=== PATIENT | male | born 1985 | race American Indian/Alaskan Native ===

== ENCOUNTER 2017-12-18 11:50 | Inpatient (IN) | payer MEDICAID ==
[2017-12-18 13:13] LABS: ALBUMIN 4.2 g/dL (3.5-5.0); CALCIUM 9.1 mg/dl (8.6-10.4); GFR AFRICAN-AMERICAN > 60; GFR NON-AFRICAN AMERICAN > 60
[2017-12-18 13:19] LABS: BASO % 0.5 % (0.0-2.0); EOS # 0.2 K/uL (0.0-0.7); EOS % 2.1 % (0.0-4.0); HEMOGLOBIN 13.2 g/dL (12.0-18.0); LYMPH # 2.3 K/uL (1.0-4.3); MEAN CELL VOLUME 83.3 fL (80.0-94.0); MEAN CORPUSCULAR HEMOGLOBIN 28.8 pg (27.0-31.0); MEAN CORPUSCULAR HGB CONC 34.5 g/dL (33.0-37.0); MEAN PLATELET VOLUME 9.4 fL (7.2-11.7); MONO # 0.5 K/uL (0.0-0.8); MONO % 6.8 % (0.0-10.0); NEUT # 4.6 K/uL (1.8-7.0); NEUT % 60.6 % (50.0-75.0); NRBC % 0.1 % (0.0-2.0); RBC 4.58 Mil/uL (4.40-5.90); RED CELL DISTRIBUTION WIDTH 12.7 % (11.5-14.5); WHITE BLOOD COUNT 7.6 K/uL (4.8-10.8)
[2017-12-18 13:27] LABS: ALT/SGPT 31 U/L (21-72); AST/SGOT 34 U/L (17-59); BLOOD UREA NITROGEN 12 mg/dL (9-20)
[2017-12-18] MEDS ORDERED: Cefepime 1 GM in Sodium Chloride 0.9% 50 ML IVPB STA (13:40)
[2017-12-18] MEDS ORDERED: Vancomycin 1 GM 1 GM/250 ML BAG IV STA (13:40)
--- NOTE | 2017-12-18 14:36 | C.PDOC ---
History Of Present Illness 32 yr male with PMHx of cerebral palsy, presents to the ER for evaluation of wound to the left foot for the past 3-4 days. Patient states the wound is painful and draining. Patient is non ambulatory due to CP. Patient reports previous history of cellulitis in the same foot, and he admits to chronic leg edema. Patient denies fever, chest pain, SOB, nausea, vomiting, diarrhea, abdominal pain. Time Seen by Provider: 12/18/17 12:27 Chief Complaint (Nursing): Lower Extremity Problem/Injury History/Exam Limitations: no limitations Onset/Duration Of Symptoms: Days (3-4 days) Current Symptoms Are (Timing): Still Present Severity: Moderate Past Medical History Reviewed: Historical Data, Nursing Documentation, Vital Signs Vital Signs: Last Vital Signs Temp 97.3 F L 12/25/17 00:00 Pulse 70 12/25/17 00:00 Resp 20 12/25/17 00:00 BP 131/89 12/25/17 00:00 Pulse Ox 98 12/25/17 00:00 - Medical History PMH: HTN Other PMH: cerebral palsy Family History: States: No Known Family Hx - Social History Hx Alcohol Use: No Hx Substance Use: No - Immunization History Hx Tetanus Toxoid Vaccination: No Hx Influenza Vaccination: No Hx Pneumococcal Vaccination: No Review Of Systems Except As Marked, All Systems Reviewed And Found Negative. Constitutional: Negative for: Fever Cardiovascular: Negative for: Chest Pain Respiratory: Negative for: Shortness of Breath Gastrointestinal: Negative for: Nausea, Vomiting, Abdominal Pain Skin: Positive for: Other ((+) wound on the left foot, draining and painful) Physical Exam - Physical Exam Appears: Well, Non-toxic, In Acute Distress (mild pain) Skin: Warm, Dry, No Rash, Other ((+) Left Foot - approx 2cm wound with clear discharge, tender to palpation with mild surrounding erythema) Oral Mucosa: Moist Cardiovascular: Rhythm Regular Respiratory: Normal Breath Sounds, No Rales, No Rhonchi, No Wheezing Extremity: Other (Mild contraction/deformity of B/L hands/feet, chronic thickened skin of lower extremities. +2 pitting edema B/L ) Pulses: Left Dorsalis Pedis: Normal, Right Dorsalis Pedis: Normal Neurological/Psych: Oriented x3 ED Course And Treatment - Laboratory Results Result Diagrams: 12/20/17 07:15 12/20/17 07:15 O2 Sat by Pulse Oximetry: 100 (RA) Pulse Ox Interpretation: Normal Progress Note: PLAN: Blood work ordered and reviewed. Patient given IV Vancomycin, IV Cefepime, IV Morphine, IV NS bolus. 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 Disposition - Disposition Disposition: HOSPITALIZED Disposition Time: 14:42 Condition: STABLE - Clinical Impression Clinical Impression: Cellulitis of left foot, Cerebral palsy - Scribe Statement The provider has reviewed the documentation as recorded by the Franciibe Marsha Bloom Provider Attestation: All medical record entries made by the Franciibe were at my direction and personally dictated by me. I have reviewed the chart and agree that the record accurately reflects my personal performance of the history, physical exam, medical decision making, and the department course for this patient. I have also personally directed, reviewed, and agree with the discharge instructions and disposition.
[2017-12-18] MEDS ORDERED: Morphine 4 MG/ML VIAL ONE (14:46)
[2017-12-18] MEDS ORDERED: Vancomycin 1 gm/NS 200 ml 1 GM/200 ML BAG IVPB ONE (15:00)
--- NOTE | 2017-12-18 22:12 | CP.PCM.CON ---
History of Present Illness - History of Present Illness History of Present Illness: INFECTIOUS DISEASE CONSULT HPI; 32 yr male with PMhx of cerebral palsy, presents to the ER for evaluation of wound to the left foot for the past 3-4 days. Patient states the wound is painful and draining. Patient is non ambulatory. Patient reports previous history of cellulites in the foot. Patient has chronic leg edema. Denies fever, chest pain, SOB, nausea, vomiting or abdominal pain. PATIENT DENIES ANY FEVER OR CHILLS. DENIES ANY COUGH. PATIENT STATES HE FEELS WEAK. INFECTIOUS DISEASE CONSULTATION REQUESTED BY PMD FOR CHRONIC STASIS ULCERS AND LEFT LEG CELLULITIS PMH: HTN,CEREBRAL PALSY. Family History: States: No Known Family Hx - Social History Hx Alcohol Use: No Hx Substance Use: No - Immunization History Hx Tetanus Toxoid Vaccination: No Hx Influenza Vaccination: No Hx Pneumococcal Vaccination: No Review of Systems - Constitutional Constitutional: absent: Chills, Fever - EENT Eyes: absent: Floaters Nose/Mouth/Throat: absent: Dry Mouth, Dysphagia, Sore Throat - Cardiovascular Cardiovascular: Leg Edema. absent: Chest Pain - Respiratory Respiratory: absent: Cough, Hemoptysis, Dyspnea on Exertion - Genitourinary Genitourinary: absent: Dysuria, Hematuria, Freq UTI - Integumentary Integumentary: Rash (DRY SKIN PEELING OFF BILATERAL LOWER EXTREMITIES WITH CHRONIC STASIS DERMATITIS CHANGES AND LEFT FOOT ULCER) - Neurological Neurological: absent: Dizziness, Headaches - Hematologic/Lymphatic Hematologic: As Per HPI. absent: Lymphadenopathy Past Patient History - Past Medical History & Family History Past Medical History?: Yes - Past Social History Smoking Status: Never Smoked - CARDIAC Hx Hypertension: Yes - MUSCULOSKELETAL/RHEUMATOLOGICAL Other/Comment: CEREBRAL PALSY - PSYCHIATRIC Hx Substance Use: No - SURGICAL HISTORY Hx Surgeries: No - ANESTHESIA Hx Anesthesia: No Meds Allergies/Adverse Reactions: Allergies Allergy/AdvReac Type Severity Reaction Status Date / Time acetaminophen [From Percocet] Allergy Verified 12/18/17 12:05 oxycodone [From Percocet] Allergy Verified 12/18/17 12:05 - Medications Medications: Current Medications Acetaminophen (Tylenol 325mg Tab) 650 mg PO Q4H PRN PRN Reason: pain fever Famotidine (Pepcid) 40 mg PO DAILY [facility] Furosemide (Lasix) 40 mg IVP Q12 [facility] Hydromorphone HCl (Dilaudid) 0.5 mg IVP Q4H PRN PRN Reason: Pain, Mild (1-3) Vancomycin/Sodium Chloride (Vancomycin 1 Gm/Ns 200 Ml) 1 gm in 200 mls @ 133 mls/hr IVPB Q24H СЕРГЕ[facility] Stop: 12/24/17 16:01 Ondansetron HCl (Zofran Inj) 4 mg IVP Q6 PRN PRN Reason: Nausea/Vomiting Physical Exam - Constitutional Appears: No Acute Distress - Head Exam Head Exam: NORMAL INSPECTION - Eye Exam Eye Exam: EOMI, PERRL - ENT Exam ENT Exam: Normal Oropharynx - Neck Exam Neck exam: Positive for: Normal Inspection - Respiratory Exam Respiratory Exam: Clear to Auscultation Bilateral - Cardiovascular Exam Cardiovascular Exam: REGULAR RHYTHM, +S1, +S2 - GI/Abdominal Exam GI & Abdominal Exam: Normal Bowel Sounds, Soft. absent: Organomegaly - Extremities Exam Extremities exam: Positive for: pedal edema, pedal pulses present (BILATERAL LOWER EXTREMITIES STASIS DERMATITIS CHANGES WITH CHRONIC EDEMA AND LEFT LOWER EXTREMITY CELLULITIS.(+) Left Foot - 2cm wound with clear discharge, tender to palpation with mild erythema)). Negative for: calf tenderness - Neurological Exam Neurological exam: Alert, CN II-XII Intact, Oriented x3, Reflexes Normal - Psychiatric Exam Psychiatric exam: Normal Mood - Skin Skin Exam: Normal Color, Warm Results - Vital Signs Recent Vital Signs: Last Vital Signs Temp 97.5 F L 12/18/17 11:57 Pulse 99 H 12/18/17 18:58 Resp 18 12/18/17 18:58 BP 138/94 H 12/18/17 18:59 Pulse Ox 100 12/18/17 18:58 - Labs Result Diagrams: 12/18/17 12:57 12/18/17 12:57 Labs: Laboratory Results - last 24 hr 12/18/17 12/18/17 12/18/17 12:57 12:57 13:13 WBC 7.6 RBC 4.58 Hgb 13.2 Hct 38.1 MCV 83.3 MCH 28.8 MCHC 34.5 RDW 12.7 Plt Count 325 MPV 9.4 Neut % (Auto) 60.6 Lymph % (Auto) 30.0 [place] % (Auto) 6.8 Eos % (Auto) 2.1 Baso % (Auto) 0.5 Neut # 4.6 Lymph # 2.3 [place] # 0.5 Eos # 0.2 Baso # 0.0 ESR 43 H Sodium 132 Potassium 4.3 Chloride 98 Carbon Dioxide 28 Anion Gap 11 BUN 12 Creatinine 0.8 Est GFR ( Amer) > 60 Est GFR (Non-Af Amer) > 60 POC Glucose (mg/dL) 58 L Random Glucose 85 Calcium 9.1 Total Bilirubin 1.0 AST 34 ALT 31 Alkaline Phosphatase 48 Total Protein 8.5 H Albumin 4.2 Globulin 4.3 H Albumin/Globulin Ratio 1.0 12/18/17 12/18/17 12/18/17 13:15 13:47 13:50 WBC RBC Hgb Hct MCV MCH MCHC RDW Plt Count MPV Neut % (Auto) Lymph % (Auto) [place] % (Auto) Eos % (Auto) Baso % (Auto) Neut # Lymph # [place] # Eos # Baso # ESR Sodium Potassium Chloride Carbon Dioxide Anion Gap BUN Creatinine Est GFR ( Amer) Est GFR (Non-Af Amer) POC Glucose (mg/dL) 54 L 70 84 Random Glucose Calcium Total Bilirubin AST ALT Alkaline Phosphatase Total Protein Albumin Globulin Albumin/Globulin Ratio Assessment & Plan (1) Cerebral palsy Status: Acute (2) Chronic stasis dermatitis Status: Acute (3) Foot abrasion, infected Assessment and Plan: LT. FOOT ULCER.(+) Left Foot - 2cm wound with clear discharge, tender to palpation with mild erythema. Status: Acute (4) Cellulitis of left lower leg Status: Acute - Assessment and Plan (Free Text) Plan: Plan; blood cultures wound cultures left foot ulcer. continue cefepime 1 g every 8 hourly. 12/18/17. Add IV vancomycin 1 g every 24 hourly 12/18/17 while awaiting cultures. Podiatry evaluation and consult and wound care. Will follow along with you and make recommendations as needed.
--- NOTE | 2017-12-18 22:12 | CP.PCM.CON ---
Past Patient History - Past Medical History & Family History Past Medical History?: Yes - Past Social History Smoking Status: Never Smoked - CARDIAC Hx Hypertension: Yes - MUSCULOSKELETAL/RHEUMATOLOGICAL Other/Comment: CEREBRAL PALSY - PSYCHIATRIC Hx Substance Use: No - SURGICAL HISTORY Hx Surgeries: No - ANESTHESIA Hx Anesthesia: No Meds Allergies/Adverse Reactions: Allergies Allergy/AdvReac Type Severity Reaction Status Date / Time acetaminophen [From Percocet] Allergy Verified 12/18/17 12:05 oxycodone [From Percocet] Allergy Verified 12/18/17 12:05 - Medications Medications: Current Medications Acetaminophen (Tylenol 325mg Tab) 650 mg PO Q4H PRN PRN Reason: pain fever Famotidine (Pepcid) 40 mg PO DAILY [facility]ГЕ[facility] Furosemide (Lasix) 40 mg IVP Q12 [facility] Hydromorphone HCl (Dilaudid) 0.5 mg IVP Q4H PRN PRN Reason: Pain, Mild (1-3) Vancomycin/Sodium Chloride (Vancomycin 1 Gm/Ns 200 Ml) 1 gm in 200 mls @ 133 mls/hr IVPB Q24H СЕРГЕЙ Stop: 12/24/17 16:01 Ondansetron HCl (Zofran Inj) 4 mg IVP Q6 PRN PRN Reason: Nausea/Vomiting Results - Vital Signs Recent Vital Signs: Last Vital Signs Temp 97.5 F L 12/18/17 11:57 Pulse 99 H 12/18/17 18:58 Resp 18 12/18/17 18:58 BP 138/94 H 12/18/17 18:59 Pulse Ox 100 12/18/17 18:58 - Labs Result Diagrams: 12/18/17 12:57 12/18/17 12:57 Labs: Laboratory Results - last 24 hr 12/18/17 12/18/17 12/18/17 12:57 12:57 13:13 WBC 7.6 RBC 4.58 Hgb 13.2 Hct 38.1 MCV 83.3 MCH 28.8 MCHC 34.5 RDW 12.7 Plt Count 325 MPV 9.4 Neut % (Auto) 60.6 Lymph % (Auto) 30.0 [place] % (Auto) 6.8 Eos % (Auto) 2.1 Baso % (Auto) 0.5 Neut # 4.6 Lymph # 2.3 [place] # 0.5 Eos # 0.2 Baso # 0.0 ESR 43 H Sodium 132 Potassium 4.3 Chloride 98 Carbon Dioxide 28 Anion Gap 11 BUN 12 Creatinine 0.8 Est GFR ( Amer) > 60 Est GFR (Non-Af Amer) > 60 POC Glucose (mg/dL) 58 L Random Glucose 85 Calcium 9.1 Total Bilirubin 1.0 AST 34 ALT 31 Alkaline Phosphatase 48 Total Protein 8.5 H Albumin 4.2 Globulin 4.3 H Albumin/Globulin Ratio 1.0 12/18/17 12/18/17 12/18/17 13:15 13:47 13:50 WBC RBC Hgb Hct MCV MCH MCHC RDW Plt Count MPV Neut % (Auto) Lymph % (Auto) [place] % (Auto) Eos % (Auto) Baso % (Auto) Neut # Lymph # [place] # Eos # Baso # ESR Sodium Potassium Chloride Carbon Dioxide Anion Gap BUN Creatinine Est GFR ( Amer) Est GFR (Non-Af Amer) POC Glucose (mg/dL) 54 L 70 84 Random Glucose Calcium Total Bilirubin AST ALT Alkaline Phosphatase Total Protein Albumin Globulin Albumin/Globulin Ratio
[2017-12-19 03:33] LABS: URINE BILIRUBIN NEGATIVE (NEGATIVE); URINE BLOOD NEGATIVE (NEGATIVE); URINE CLARITY Clear (Clear); URINE COLOR Straw (YELLOW); URINE GLUCOSE (UA) NORMAL (Normal); URINE LEUKOCYTE ESTERASE NEG Leu/uL (Negative); URINE NITRATE NEGATIVE (NEGATIVE); URINE PROTEIN NEGATIVE (NEGATIVE); URINE UROBILINOGEN NORMAL mg/dL (0.2-1.0)
--- NOTE | 2017-12-19 04:52 | HP ---
CHIEF COMPLAINT: Left foot and leg ulcer. HISTORY OF PRESENT ILLNESS: Mr. Robin Kaufman is a 32-year-old male with past medical history of cerebral palsy, mentally challenged, who came to the Emergency Room for evaluation of the wound to the left foot for the past 3 to 4 days. The patient states the wound is painful and draining. The patient is nonambulatory. The patient reports previous history of cellulitis in the foot and has chronic leg edema. Denies fever or chills. No nausea, vomiting or diarrhea. No shortness of breath. No hematuria or hematochezia. No injury of the lower extremity. PAST MEDICAL HISTORY: Hypertension, cerebral palsy, cellulitis of the legs. FAMILY HISTORY: Father and mother unknown. SOCIAL HISTORY: No smoking, no drugs, no ethanol. ALLERGIES: THE PATIENT IS ALLERGIC WITH ACETAMINOPHEN AND OXYCODONE. HOME MEDICATIONS: Lasix. REVIEW OF SYSTEMS: The patient seen and examined on the bedside in the ER hallway, bed #5. Looks comfortable after getting pain medications. He is not a very good historian. No fever, no chills. Has cellulitis of the legs. No chest pain, no shortness of breath. No nausea, vomiting or diarrhea. No abdominal pain. He has wound of the left foot, draining and painful. PHYSICAL EXAMINATION: VITAL SIGNS: Temperature 97.5, pulse 96, respiratory rate 18, blood pressure 140/96, pulse oximetry 100. HEENT: Head: Normocephalic, atraumatic. Eyes: PERRLA. Extraocular movements are intact. Conjunctivae clear. Nose patent. Mucous membranes are moist. NECK: Supple. No carotid bruits, no JVD or thyromegaly. CHEST: Bilaterally symmetrical. HEART: S1 and S2 positive. LUNGS: Clear to auscultation, ABDOMEN: Soft. Bowel sounds are present. No organomegaly. EXTREMITIES: Chronic thicker skin to the lower extremities, +2 pitting edema to the left lower extremities, mildly contracted lower extremities. LABORATORY DATA: White blood cells 7.6, hemoglobin 13.2, hematocrit 38.1, platelets 325. Sodium 132, potassium 4.3, BUN 12, creatinine 0.8, glucose 85. ASSESSMENT AND PLAN: Mr. Robin Kaufman is a 32-year-old male with history of hypertension, cerebral palsy, mentally challenged, contracted legs, came with ulcer on the leg and foot on his left side. We admitted the patient. Started antibiotics. ID consult called. We will call Podiatry also. Given pain medications. Lasix. History of congestive heart failure. Pepcid, gastrointestinal prophylaxis, started vancomycin. Repeat labs. We will follow. Lien Manriquez MD
[2017-12-19 06:33] LABS: HEMOGLOBIN 13.3 g/dL (12.0-18.0); MEAN CELL VOLUME 82.8 fL (80.0-94.0); MEAN CORPUSCULAR HEMOGLOBIN 28.7 pg (27.0-31.0); MEAN CORPUSCULAR HGB CONC 34.7 g/dL (33.0-37.0); MEAN PLATELET VOLUME 9.1 fL (7.2-11.7); RBC 4.65 Mil/uL (4.40-5.90); RED CELL DISTRIBUTION WIDTH 12.6 % (11.5-14.5); WHITE BLOOD COUNT 11.7 K/uL (4.8-10.8)
[2017-12-19 06:51] LABS: BLOOD UREA NITROGEN 10 mg/dL (9-20); CALCIUM 9.2 mg/dl (8.6-10.4); GFR AFRICAN-AMERICAN > 60; GFR NON-AFRICAN AMERICAN > 60; HDL CHOLESTEROL 37 mg/dL (30-70)
[2017-12-19 07:01] LABS: LDL CHOLESTEROL 84 mg/dL (0-129)
[2017-12-19] MEDS: Enoxaparin 40 mg Syringe SC SCH (10:32)
--- NOTE | 2017-12-19 13:16 | CP.PCM.CON ---
History of Present Illness - History of Present Illness History of Present Illness: 32 yr male with PMhx of cerebral palsy seen at bedside for b/l venous stasis dermatits with lichenification of the skin and very superficial ulcerations. Patient states that he has had these wounds for the last few days. He states that he has never sought treatment for the skin changes to his feet and legs. He is AAO x 3 and NAD. Denies any further complaints or pedal problems at this time. Denies recent N/V/F/C/CP/SOB/D/posterior calf pain when squeezed. Review of Systems - Review of Systems Review of Systems: ROS as per HPI Past Patient History - Past Medical History & Family History Past Medical History?: Yes - Past Social History Smoking Status: Never Smoked - CARDIAC Hx Hypertension: Yes - MUSCULOSKELETAL/RHEUMATOLOGICAL Other/Comment: CEREBRAL PALSY - PSYCHIATRIC Hx Substance Use: No - SURGICAL HISTORY Hx Surgeries: No - ANESTHESIA Hx Anesthesia: No Meds Allergies/Adverse Reactions: Allergies Allergy/AdvReac Type Severity Reaction Status Date / Time acetaminophen [From Percocet] Allergy Verified 12/18/17 12:05 oxycodone [From Percocet] Allergy Verified 12/18/17 12:05 - Medications Medications: Current Medications Acetaminophen (Tylenol 325mg Tab) 650 mg PO Q4H PRN PRN Reason: pain fever Enoxaparin Sodium (Lovenox) 40 mg SC DAILY [facility] Last Admin: 12/19/17 10:32 Dose: 40 mg Famotidine (Pepcid) 40 mg PO DAILY СЕРГЕЙ Furosemide (Lasix) 40 mg IVP Q12 [facility] Last Admin: 12/19/17 10:35 Dose: 40 mg Hydromorphone HCl (Dilaudid) 0.5 mg IVP Q4H PRN PRN Reason: Pain, Mild (1-3) Last Admin: 12/18/17 22:53 Dose: 0.5 mg Vancomycin/Sodium Chloride (Vancomycin 1 Gm/Ns 200 Ml) 1 gm in 200 mls @ 133 mls/hr IVPB Q24H [facility] Stop: 12/24/17 16:01 Cefepime HCl 1 gm/ Dextrose 50 mls @ 100 mls/hr IVPB Q8H [facility] Last Admin: 12/19/17 05:31 Dose: 100 mls/hr Ondansetron HCl (Zofran Inj) 4 mg IVP Q6 PRN PRN Reason: Nausea/Vomiting Last Admin: 12/19/17 03:00 Dose: 4 mg Pneumococcal Polyvalent Vaccine (Pneumovax 23 Vaccine) 0.5 ml IM .ONCE ONE Stop: 12/20/17 10:01 Physical Exam - Constitutional Appears: Well, Non-toxic, No Acute Distress - Extremities Exam Additional comments: B/l LE focused exam Vasc: DP/PT pulses fully palpable 2/4 b/l. Skin temperature warm to warm from proximal to distal. CFT < 3 seconds to all digits. Minimal edema noted b/l Neuro: Epicritic and protective sensation grossly intact b/l Derm: Diffuse xerotic skin most likely secondary to venous stasis dermatitis noted to b/l feet and lower legs with lichenification of skin also present. Multiple, small, superficial ulcerations noted diffusely on b/l feet. No clinical signs of infection noted at this time. Otherwise, no open lesions, wounds, maceration, xerosis, abnormal pigmentation or abnormal growths noted b/l MSK: No POP to b/l LE. Rigid conrtractures of b/l LE noted. Severe hallux valgus deformity noted b/l - Neurological Exam Neurological exam: Alert, Oriented x3 - Psychiatric Exam Psychiatric exam: Normal Affect, Normal Mood Results - Vital Signs Recent Vital Signs: Last Vital Signs Temp 97.3 F L 12/19/17 00:00 Pulse 102 H 12/19/17 00:00 Resp 20 12/19/17 00:00 BP 141/88 12/19/17 10:35 Pulse Ox 97 12/19/17 00:00 - Labs Result Diagrams: 12/19/17 06:22 12/19/17 06:22 Labs: Laboratory Results - last 24 hr 12/18/17 12/18/17 12/18/17 12:57 12:57 13:13 WBC 7.6 RBC 4.58 Hgb 13.2 Hct 38.1 MCV 83.3 MCH 28.8 MCHC 34.5 RDW 12.7 Plt Count 325 MPV 9.4 Neut % (Auto) 60.6 Lymph % (Auto) 30.0 [place] % (Auto) 6.8 Eos % (Auto) 2.1 Baso % (Auto) 0.5 Neut # 4.6 Lymph # 2.3 [place] # 0.5 Eos # 0.2 Baso # 0.0 ESR 43 H Sodium 132 Potassium 4.3 Chloride 98 Carbon Dioxide 28 Anion Gap 11 BUN 12 Creatinine Est GFR ( Amer) Est GFR (Non-Af Amer) POC Glucose (mg/dL) 58 L Random Glucose Calcium AST 34 ALT 31 Alkaline Phosphatase 48 Globulin 4.3 H Albumin/Globulin Ratio 1.0 Triglycerides Cholesterol LDL Cholesterol Direct HDL Cholesterol TSH 3rd Generation Urine Color Urine Clarity Urine pH Ur Specific [place] Urine Protein Urine Glucose (UA) Urine Ketones Urine Blood Urine Nitrate Urine Bilirubin Urine Urobilinogen Ur Leukocyte Esterase Urine WBC (Auto) Urine RBC (Auto) Hyaline Casts 12/18/17 12/18/17 12/18/17 13:15 13:47 13:50 WBC RBC Hgb Hct MCV MCH MCHC RDW Plt Count MPV Neut % (Auto) Lymph % (Auto) [place] % (Auto) Eos % (Auto) Baso % (Auto) Neut # Lymph # [place] # Eos # Baso # ESR Sodium Potassium Chloride Carbon Dioxide Anion Gap BUN Creatinine Est GFR ( Amer) Est GFR (Non-Af Amer) POC Glucose (mg/dL) 54 L 70 84 Random Glucose Calcium AST ALT Alkaline Phosphatase Globulin Albumin/Globulin Ratio Triglycerides Cholesterol LDL Cholesterol Direct HDL Cholesterol TSH 3rd Generation Urine Color Urine Clarity Urine pH Ur Specific [place] Urine Protein Urine Glucose (UA) Urine Ketones Urine Blood Urine Nitrate Urine Bilirubin Urine Urobilinogen Ur Leukocyte Esterase Urine WBC (Auto) Urine RBC (Auto) Hyaline Casts 12/19/17 12/19/17 12/19/17 03:16 06:22 06:22 WBC 11.7 H D RBC 4.65 Hgb 13.3 Hct 38.5 MCV 82.8 MCH 28.7 MCHC 34.7 RDW 12.6 Plt Count 371 MPV 9.1 Neut % (Auto) Lymph % (Auto) [place] % (Auto) Eos % (Auto) Baso % (Auto) Neut # Lymph # [place] # Eos # Baso # ESR Sodium 134 Potassium 3.7 Chloride 92 L Carbon Dioxide 32 H Anion Gap 14 BUN 10 Creatinine 0.8 Est GFR ( Amer) > 60 Est GFR (Non-Af Amer) > 60 POC Glucose (mg/dL) Random Glucose 130 H Calcium 9.2 AST ALT Alkaline Phosphatase Globulin Albumin/Globulin Ratio Triglycerides 54 Cholesterol 158 LDL Cholesterol Direct 84 HDL Cholesterol 37 TSH 3rd Generation 0.43 L Urine Color Straw Urine Clarity Clear Urine pH 5.0 Ur Specific [place] 1.008 Urine Protein Negative Urine Glucose (UA) Normal Urine Ketones Negative Urine Blood Negative Urine Nitrate Negative Urine Bilirubin Negative Urine Urobilinogen Normal Ur Leukocyte Esterase Neg Urine WBC (Auto) < 1 Urine RBC (Auto) < 1 Hyaline Casts 11-20 H Assessment & Plan - Assessment and Plan (Free Text) Assessment: 32 year old male with PMhx of cerebral palsy seen at bedside for b/l venous stasis dermatits with lichenification of the skin and very superficial ulcerations Plan: Patient seen and evaluated at bedside with attending Dr. Corbin Afebrile, WBC 11.7 Continue IV abx per ID B/l legs lathered with aloe vera lotion and xeroform, dressed in DSD Lac hydrin lotion ordered to be applied daily Multipodus boots ordered and to be worn at all times while patient in bed Podiatry will continue to follow while patient in house - Date & Time Date: 12/19/17 Time: 13:22
[2017-12-19] MEDS: Vancomycin 1 gm/NS 200 ml 1 GM/200 ML BAG IVPB SCH (16:50)
--- NOTE | 2017-12-19 21:28 | CP.PCM.PN ---
Subjective - Date & Time of Evaluation Date of Evaluation: 12/19/17 Time of Evaluation: 21:28 - Subjective Subjective: AFEBRILE, OFFERS NO NEW COMPLAINTS. SEEN BY PODIATRY AND RECOMMENDATIONS NOTED. Objective - Vital Signs/Intake and Output Vital Signs (last 24 hours): Temp Pulse Resp BP Pulse Ox 97.9 F 113 H 20 135/85 95 12/19/17 16:00 12/19/17 16:00 12/19/17 16:00 12/19/17 16:00 12/19/17 16:00 - Medications Medications: Current Medications Acetaminophen (Tylenol 325mg Tab) 650 mg PO Q4H PRN PRN Reason: pain fever Enoxaparin Sodium (Lovenox) 40 mg SC DAILY [facility] Last Admin: 12/19/17 10:32 Dose: 40 mg Famotidine (Pepcid) 40 mg PO DAILY [facility] Last Admin: 12/19/17 14:12 Dose: 40 mg Furosemide (Lasix) 40 mg IVP Q12 [facility] Last Admin: 12/19/17 10:35 Dose: 40 mg Hydromorphone HCl (Dilaudid) 0.5 mg IVP Q4H PRN PRN Reason: Pain, Mild (1-3) Last Admin: 12/18/17 22:53 Dose: 0.5 mg Vancomycin/Sodium Chloride (Vancomycin 1 Gm/Ns 200 Ml) 1 gm in 200 mls @ 133 mls/hr IVPB Q24H [facility] Stop: 12/24/17 16:01 Last Admin: 12/19/17 16:50 Dose: 133 mls/hr Cefepime HCl 1 gm/ Dextrose 50 mls @ 100 mls/hr IVPB Q8H [facility] Last Admin: 12/19/17 14:00 Dose: 100 mls/hr Lactic Acid (Lac-Hydrin 12% Lotion (225 G)) 0 gm EXT DAILY [facility] Ondansetron HCl (Zofran Inj) 4 mg IVP Q6 PRN PRN Reason: Nausea/Vomiting Last Admin: 12/19/17 03:00 Dose: 4 mg Pneumococcal Polyvalent Vaccine (Pneumovax 23 Vaccine) 0.5 ml IM .ONCE ONE Stop: 12/20/17 10:01 - Labs Labs: 12/19/17 06:22 12/19/17 06:22 - Constitutional Appears: No Acute Distress - Head Exam Head Exam: NORMAL INSPECTION - Eye Exam Eye Exam: EOMI, PERRL - ENT Exam ENT Exam: Normal Oropharynx - Neck Exam Neck Exam: Normal Inspection - Respiratory Exam Respiratory Exam: Clear to Ausculation Bilateral - Cardiovascular Exam Cardiovascular Exam: REGULAR RHYTHM, +S1, +S2 - GI/Abdominal Exam GI & Abdominal Exam: Soft, Normal Bowel Sounds - Extremities Exam Extremities Exam: Pedal Edema. absent: Calf Tenderness Additional comments: B/L SEVERE VALGUS DEFORMITY. BILATERAL VENOUS STASIS DERMATITIS CHANGES SEEN WITH LICHENIFICATION OF THE SKIN AND SUPERFICIAL ULCERATIONS LEFT FOOT AND RIGHT LOWER EXTREMITY/DORSUM OF THE FOOT. - Neurological Exam Neurological Exam: Alert, Awake, CN II-XII Intact - Psychiatric Exam Psychiatric exam: Normal Mood - Skin Skin Exam: Abrasion, Dry, Warm Assessment and Plan (1) Cerebral palsy Status: Acute (2) Chronic stasis dermatitis Status: Acute (3) Foot abrasion, infected Status: Acute (4) Cellulitis of left lower leg Status: Acute - Assessment and Plan (Free Text) Plan: wound cultures left foot ulcer -P continue cefepime 1 g every 8 hourly. 12/18/17. CONTINUE IV vancomycin 1 g every 24 hourly 12/18/17 while awaiting cultures. follow-up Vancomycin trough level on Thursday. f/u renal functions closely. Podiatry evaluation and wound care recommendations appreciated.
--- NOTE | 2017-12-20 00:27 | PN ---
DATE: SUBJECTIVE: The patient is a 32-year-old male. The patient is seen and examined on the bedside, looking comfortable. No big change on the status, still complaining of pain in the legs. No nausea, vomiting, or diarrhea. No hematuria or hematochezia. No swelling of the upper extremities. Lower extremities have scales on the skin. Has venous stasis. Neurologically, the patient is awake, obeying simple orders. PHYSICAL EXAMINATION: VITAL SIGNS: Temperature 97.9, pulse 113, blood pressure 135/85, and respiratory rate 20. HEENT: Head: Normocephalic, atraumatic. Eyes: PERRLA. Extraocular movements intact. Conjunctivae clear. Nose: Patent. Mucous membranes are moist. NECK: Supple. No carotid bruits, JVD, or thyromegaly. CHEST: Bilaterally symmetrical. HEART: S1, S2 positive. LUNGS: Clear to auscultation. ABDOMEN: Soft. Bowel sounds are positive. No organomegaly. EXTREMITIES: Upper extremities with no edema or cyanosis. Lower extremities have contractures. Feet have ulcers. NEUROLOGIC: The patient is awake. Follows simple commands. LABORATORY DATA: White blood cells 11.7, hemoglobin 13.3, hematocrit 38.5, and platelets 371. Sodium 134, potassium 3.7, BUN 10, creatinine 0.8, and random glucose 130. MEDICATIONS: Cefepime, Dilaudid, Lac-Hydrin, Lasix, Lovenox, Pepcid, Pneumovax is given, Tylenol, vancomycin, and Zofran. ASSESSMENT AND PLAN: Mr. Robin Kaufman is a 32-year-old male with leukocytosis, hypochloremia, and hyperglycemia. The patient has a history of cerebral palsy, bilateral venous stasis dermatitis with lichenification of the skin and very superficial ulceration. These ulcers are from a couple of weeks, but the patient never called for treatment. Discussion done with Dr. Martín Corbin, manager sas. Continue IV antibiotics as per Infectious Disease. Bilateral legs with aloevera lotion and Xeroform dressed in DSD.. Lac-Hydrin lotion ordered for the body. Multi Podus boots ordered and to be worn at all times while the patient is in the bed. The patient is seen by Dr. Letty Gil also, Infectious Disease. The patient has a history of hypertension also. Left foot ulcer is more than the right, is a 2-cm wound with clear discharge, tender to palpation with mild erythema. Blood cultures and wound cultures are done by Infectious Disease. Continue Cefepime every 8 hours, vancomycin every 24 hours. Gastrointestinal and deep venous thrombosis prophylaxis. Repeat labs. We will follow. Lien Manriquez MD MTDD
[2017-12-20 07:23] LABS: BASO % 0.5 % (0.0-2.0); EOS # 0.4 K/uL (0.0-0.7); EOS % 4.2 % (0.0-4.0); HEMOGLOBIN 13.1 g/dL (12.0-18.0); LYMPH # 3.2 K/uL (1.0-4.3); LYMPH % 32.4 % (20.0-40.0); MEAN CELL VOLUME 83.7 fL (80.0-94.0); MEAN CORPUSCULAR HEMOGLOBIN 28.1 pg (27.0-31.0); MEAN CORPUSCULAR HGB CONC 33.6 g/dL (33.0-37.0); MEAN PLATELET VOLUME 9.4 fL (7.2-11.7); MONO # 0.8 K/uL (0.0-0.8); MONO % 8.6 % (0.0-10.0); NEUT # 5.3 K/uL (1.8-7.0); NEUT % 54.3 % (50.0-75.0); NRBC % 0.1 % (0.0-2.0); RBC 4.67 Mil/uL (4.40-5.90); RED CELL DISTRIBUTION WIDTH 12.7 % (11.5-14.5); WHITE BLOOD COUNT 9.8 K/uL (4.8-10.8)
[2017-12-20 07:46] LABS: ALT/SGPT 19 U/L (21-72); AST/SGOT 24 U/L (17-59); BLOOD UREA NITROGEN 10 mg/dL (9-20); GFR AFRICAN-AMERICAN > 60; GFR NON-AFRICAN AMERICAN > 60
[2017-12-20] MEDS: Enoxaparin 40 mg Syringe SC SCH (09:28)
[2017-12-20] MEDS: Ammonium Lactate 12% Lotion (225 g) EXT SCH (10:00)
[2017-12-20] MEDS ORDERED: Influenza Vaccine 60 mcg/0.5 mL SYR (4YR UP) IM ONE (10:00)
[2017-12-20] MEDS ORDERED: Pneumococcal 23-Valent Vaccine IM ONE (10:00)
[2017-12-20] MEDS: Vancomycin 1 gm/NS 200 ml 1 GM/200 ML BAG IVPB SCH (16:21)
--- NOTE | 2017-12-21 00:45 | PN ---
DATE: SUBJECTIVE: Patient is a 32-year-old male. Patient is seen and examined at the bedside. Looking comfortable except that feeling nauseous and as per patient yesterday he had 2 episodes of vomiting, no witness, but patient is on Zofran p.r.n., still complaining about foot pain. No fever. No chills. No headache. No dizziness. PHYSICAL EXAMINATION: VITAL SIGNS: Temperature 98.4, pulse 100, blood pressure 123/78, respiratory rate 18. HEENT: Head: Normocephalic, atraumatic. Eyes: PERRLA. Extraocular movements intact. Conjunctivae clear. Nose patent. Mucous membrane moist. NECK: Supple. No carotid bruit. No JVD or thyromegaly. CHEST: Bilaterally symmetrical. HEART: S1 and S2 positive. LUNGS: Clear to auscultation. ABDOMEN: Soft. Bowel sounds positive. No organomegaly. EXTREMITIES: Trace edema and deformity of the legs. No cyanosis. NEUROLOGIC: Patient is awake and alert. Follow simple commands. MEDICATIONS: Cefepime, Dilaudid, Lac-Hydrin, Lasix, Lovenox, Pepcid, Tylenol, vancomycin and Zofran. LABORATORY DATA: White blood cell 9.8, hemoglobin 13.1, hematocrit 39.1 and platelets 353. Sodium 135, potassium 3.5, BUN 10, creatinine 0.8 and glucose 95. ASSESSMENT AND PLAN: Mr. Robin Kaufman is a 32-year-old male with history of leukocytosis, improved; hypokalemia, we will replace; hypochloremia; seen by Dr. Letty Gil, Infectious Disease; history of cerebral palsy; chronic stasis dermatitis of the extremities; foot abrasion; infection of the foot; cellulitis of the left lower leg. Wound cultures of left foot ulcer done. Continue cefepime. Continue vancomycin. Follow up vancomycin trough level on Thursday. Follow up renal function test closely as per Infectious Disease. Podiatry evaluation by Dr. Corbin and his resident. Zofran p.r.n. for nausea, vomiting. Gastrointestinal and deep venous thrombosis prophylaxis. Repeat labs. We will follow. Lien Manriquez MD
--- NOTE | 2017-12-21 06:44 | CP.PCM.CON ---
<Darrick Morales - Last Filed: 12/21/17 08:10> History of Present Illness - History of Present Illness History of Present Illness: GI Consult Note: 32 M with PMHx of GERD, HTN, cerebral palsy, and mentally challenged presents with L foot pain. Pt states that he has L foot pain and wound that has been present for the past 3-4 days.The pain has gotten progressively worse and now started to drain. He states that he previous episodes of cellulites in the same foot and also has chronic lower extremity edema. The pain is non radiating and 8 /10 in severity. He denies any fever or chills. His currently being treated Vanc and Cefepime for his lower extremity wound. ID and podiatry following. Patient had 2 episodes of non bloody and non bilious vomiting 2 days ago. He denied any associated abdominal pain, diarrhea, or constipation. He states that he currently feels good, and has not had any symptoms since than. His last BM was 3 days ago - he states that he normally goes every 2-3 days. GI team has been consulted for the 2 episodes of vomiting. 12 point ROS performed and negative other than stated above PMH: as above PSH: tendon release (when he was a baby) ALL: Acetaminophen and oxycodone Med: refer to [facility] SH: denies any drinking, tobacco use, or recreational drugs FH: Unknown Endo Hx: had an EGD "many years ago showed GERD" Review of Systems - Review of Systems All systems: reviewed and no additional remarkable complaints except Past Patient History - Past Medical History & Family History Past Medical History?: Yes - Past Social History Smoking Status: Never Smoked - CARDIAC Hx Hypertension: Yes - MUSCULOSKELETAL/RHEUMATOLOGICAL Other/Comment: CEREBRAL PALSY - PSYCHIATRIC Hx Substance Use: No - SURGICAL HISTORY Hx Surgeries: No - ANESTHESIA Hx Anesthesia: No Meds Allergies/Adverse Reactions: Allergies Allergy/AdvReac Type Severity Reaction Status Date / Time acetaminophen [From Percocet] Allergy Verified 12/18/17 12:05 oxycodone [From Percocet] Allergy Verified 12/18/17 12:05 - Medications Medications: Current Medications Acetaminophen (Tylenol 325mg Tab) 650 mg PO Q4H PRN PRN Reason: pain fever Enoxaparin Sodium (Lovenox) 40 mg SC DAILY [facility] Last Admin: 12/20/17 09:28 Dose: 40 mg Famotidine (Pepcid) 40 mg PO DAILY [facility] Furosemide (Lasix) 40 mg IVP Q12 [facility] Last Admin: 12/20/17 22:02 Dose: 40 mg Hydromorphone HCl (Dilaudid) 0.5 mg IVP Q4H PRN PRN Reason: Pain, Mild (1-3) Last Admin: 12/18/17 22:53 Dose: 0.5 mg Vancomycin/Sodium Chloride (Vancomycin 1 Gm/Ns 200 Ml) 1 gm in 200 mls @ 133 mls/hr IVPB Q24H [facility] Stop: 12/24/17 16:01 Last Admin: 12/20/17 16:21 Dose: 133 mls/hr Cefepime HCl 1 gm/ Dextrose 50 mls @ 100 mls/hr IVPB Q8H [facility] Last Admin: 12/21/17 05:35 Dose: 100 mls/hr Lactic Acid (Lac-Hydrin 12% Lotion (225 G)) 0 gm EXT DAILY [facility] Last Admin: 12/20/17 10:00 Dose: 1 applic Ondansetron HCl (Zofran Inj) 4 mg IVP Q6 PRN PRN Reason: Nausea/Vomiting Last Admin: 12/20/17 00:19 Dose: 4 mg Potassium Chloride (K-Dur 20 Meq Er Tab) 20 meq PO DAILY [facility] Physical Exam - Constitutional Appears: No Acute Distress - Head Exam Head Exam: ATRAUMATIC, NORMOCEPHALIC - Eye Exam Eye Exam: EOMI Pupil Exam: NORMAL ACCOMODATION - ENT Exam ENT Exam: Mucous Membranes Moist - Neck Exam Neck exam: Positive for: Normal Inspection - Respiratory Exam Respiratory Exam: Clear to Auscultation Bilateral. absent: Rales, Wheezes - GI/Abdominal Exam GI & Abdominal Exam: Normal Bowel Sounds, Soft. absent: Distended, Guarding, Organomegaly - Extremities Exam Extremities exam: Negative for: calf tenderness - Neurological Exam Neurological exam: Alert, Oriented x3 - Psychiatric Exam Psychiatric exam: Normal Affect, Normal Mood - Skin Skin Exam: Dry, Intact Results - Vital Signs Recent Vital Signs: Last Vital Signs Temp 97.9 F 12/21/17 00:00 Pulse 93 H 12/21/17 00:00 Resp 16 12/21/17 00:00 BP 120/79 12/21/17 00:00 Pulse Ox 99 12/21/17 00:00 - Labs Result Diagrams: 12/20/17 07:15 12/20/17 07:15 Labs: Laboratory Results - last 24 hr 12/19/17 12/20/17 12/20/17 06:22 07:15 07:15 WBC 9.8 RBC 4.67 Hgb 13.1 Hct 39.1 MCV 83.7 MCH 28.1 MCHC 33.6 RDW 12.7 Plt Count 353 MPV 9.4 Neut % (Auto) 54.3 Lymph % (Auto) 32.4 [place] % (Auto) 8.6 Eos % (Auto) 4.2 H Baso % (Auto) 0.5 Neut # 5.3 Lymph # 3.2 [place] # 0.8 Eos # 0.4 Baso # 0.0 Sodium 135 Potassium 3.5 L Chloride 93 L Carbon Dioxide 28 Anion Gap 17 BUN 10 Creatinine 0.8 Est GFR ( Amer) > 60 Est GFR (Non-Af Amer) > 60 Random Glucose 95 Hemoglobin A1c 5.0 Calcium 9.0 Total Bilirubin 0.7 AST 24 ALT 19 L D Alkaline Phosphatase 51 Total Protein 7.9 Albumin 4.0 Globulin 3.9 Albumin/Globulin Ratio 1.0 Assessment & Plan - Assessment and Plan (Free Text) Assessment: 32 M with PMHx of GERD, HTN, cerebral palsy, and mentally challenged presents with L foot pain. GI team consulted for 2 episode of nausea and vomiting two days ago. 1. Nausea and vomiting 2. GERD 3. Cerebral palsy - Pt is currently asymptomatic, states that he is feeling well with no further episodes of nausea or vomiting. No GI intervention required at this time. Cont to monitor. - Antiemetics for nausea - Pain control - D/c Pepcid and will start Protonix - Cont antibiotics as per ID - Vanc and Cefepime - Follow up podiatry recs - F/u blood and urine cultures - Will cont to monitor patients clinical course Case and plan was reviewed and discussed in detail with Dr Mendoza. <Lew Mendoza - Last Filed: 12/21/17 11:49> Meds - Medications Medications: Current Medications Acetaminophen (Tylenol 325mg Tab) 650 mg PO Q4H PRN PRN Reason: pain fever Enoxaparin Sodium (Lovenox) 40 mg SC DAILY [facility] Last Admin: 12/21/17 09:53 Dose: 40 mg Furosemide (Lasix) 40 mg IVP Q12 [facility] Last Admin: 12/21/17 09:52 Dose: 40 mg Hydromorphone HCl (Dilaudid) 0.5 mg IVP Q4H PRN PRN Reason: Pain, Mild (1-3) Last Admin: 12/18/17 22:53 Dose: 0.5 mg Vancomycin/Sodium Chloride (Vancomycin 1 Gm/Ns 200 Ml) 1 gm in 200 mls @ 133 mls/hr IVPB Q24H [facility] Stop: 12/24/17 16:01 Last Admin: 12/20/17 16:21 Dose: 133 mls/hr Cefepime HCl 1 gm/ Dextrose 50 mls @ 100 mls/hr IVPB Q8H [facility] Last Admin: 12/21/17 05:35 Dose: 100 mls/hr Lactic Acid (Lac-Hydrin 12% Lotion (225 G)) 0 gm EXT DAILY [facility] Last Admin: 12/21/17 09:54 Dose: 1 applic Ondansetron HCl (Zofran Inj) 4 mg IVP Q6 PRN PRN Reason: Nausea/Vomiting Last Admin: 12/20/17 00:19 Dose: 4 mg Pantoprazole Sodium (Protonix Ec Tab) 40 mg PO DAILY [facility] Last Admin: 12/21/17 09:52 Dose: 40 mg Polyethylene Glycol (Miralax) 17 gm PO DAILY [facility] Last Admin: 12/21/17 09:52 Dose: 17 gm Potassium Chloride (K-Dur 20 Meq Er Tab) 20 meq PO DAILY [facility] Last Admin: 12/21/17 09:52 Dose: 20 meq Results - Vital Signs Recent Vital Signs: Last Vital Signs Temp 97.4 F L 12/21/17 08:05 Pulse 92 H 12/21/17 08:05 Resp 20 12/21/17 08:05 BP 104/69 12/21/17 09:52 Pulse Ox 97 12/21/17 08:05 - Labs Result Diagrams: 12/20/17 07:15 12/20/17 07:15 Attending/Attestation - Attestation I have personally seen and examined this patient.: Yes I have fully participated in the care of the patient.: Yes I have reviewed all pertinent clinical information: Yes Notes (Text): 12/21/17 11:48 32 year old male with h/o GERD, CPD, HTN a/w foot pain, also with 2 episodes of vomiting. 1. Nausea and vomiting 2. GERD Plan: -sypmtoms resolved -recommend protonix 40 mg po daily -anti-emetics as needed -episode was mild and self limited -considering abdomina limaging for recurrent/persistent symptoms, but now he tolerating a diet withtout any problem -will sign off
[2017-12-21] MEDS: Pantoprazole 40 mg EC Tab PO SCH (09:52)
[2017-12-21] MEDS: Potassium Chloride 20 mEq ER Tab PO SCH (09:52)
[2017-12-21] MEDS: POLYETHYLENE GLYCOL 3350 17 GM/Dose PACKET PO SCH ×2 (09:52→15:35)
[2017-12-21] MEDS: Enoxaparin 40 mg Syringe SC SCH (09:53)
[2017-12-21] MEDS: Ammonium Lactate 12% Lotion (225 g) EXT SCH (09:54)
[2017-12-21] MEDS: Vancomycin 1 gm/NS 200 ml 1 GM/200 ML BAG IVPB SCH (16:00)
--- NOTE | 2017-12-21 23:31 | CP.PCM.PN ---
Subjective - Date & Time of Evaluation Date of Evaluation: 12/21/17 Time of Evaluation: 23:31 - Subjective Subjective: AFEBRILE, PRESENTLY DENIES ANY NAUSEA OR VOMITING. lABS REVIEWED. BLOOD CULTURE 1:2 SETS +VE STAPH COAGULASE NEGATIVE ? CONTAMINANT. WOUND CULTURE LEFT FOOT--GNR/ SCN PATIENT ON iv CEFEPIME 1 G EVERY 8 HOURLY.. DC IV VANCOMYCIN. Objective - Vital Signs/Intake and Output Vital Signs (last 24 hours): Temp Pulse Resp BP Pulse Ox 98.3 F 94 H 20 108/74 97 12/21/17 15:30 12/21/17 15:30 12/21/17 15:30 12/21/17 21:47 12/21/17 15:30 Intake and Output: 12/21/17 12/22/17 18:59 06:59 Intake Total 400 Balance 400 - Medications Medications: Current Medications Acetaminophen (Tylenol 325mg Tab) 650 mg PO Q4H PRN PRN Reason: pain fever Enoxaparin Sodium (Lovenox) 40 mg SC DAILY [facility] Last Admin: 12/21/17 09:53 Dose: 40 mg Furosemide (Lasix) 40 mg IVP Q12 [facility] Last Admin: 12/21/17 21:47 Dose: 40 mg Hydromorphone HCl (Dilaudid) 0.5 mg IVP Q4H PRN PRN Reason: Pain, Mild (1-3) Last Admin: 12/18/17 22:53 Dose: 0.5 mg Vancomycin/Sodium Chloride (Vancomycin 1 Gm/Ns 200 Ml) 1 gm in 200 mls @ 133 mls/hr IVPB Q24H [facility] Stop: 12/24/17 16:01 Last Admin: 12/21/17 16:00 Dose: 133 mls/hr Cefepime HCl 1 gm/ Dextrose 50 mls @ 100 mls/hr IVPB Q8H [facility] Last Admin: 12/21/17 21:47 Dose: 100 mls/hr Lactic Acid (Lac-Hydrin 12% Lotion (225 G)) 0 gm EXT DAILY [facility] Last Admin: 12/21/17 09:54 Dose: 1 applic Ondansetron HCl (Zofran Inj) 4 mg IVP Q6 PRN PRN Reason: Nausea/Vomiting Last Admin: 12/20/17 00:19 Dose: 4 mg Pantoprazole Sodium (Protonix Ec Tab) 40 mg PO DAILY [facility] Last Admin: 12/21/17 09:52 Dose: 40 mg Polyethylene Glycol (Miralax) 17 gm PO DAILY [facility] Last Admin: 12/21/17 15:35 Dose: Not Given Potassium Chloride (K-Dur 20 Meq Er Tab) 20 meq PO DAILY [facility] Last Admin: 12/21/17 09:52 Dose: 20 meq - Labs Labs: 12/20/17 07:15 12/20/17 07:15 - Constitutional Appears: Non-toxic, No Acute Distress - Head Exam Head Exam: NORMAL INSPECTION - ENT Exam ENT Exam: Normal Oropharynx - Neck Exam Neck Exam: Normal Inspection - Respiratory Exam Respiratory Exam: Clear to Ausculation Bilateral - Cardiovascular Exam Cardiovascular Exam: REGULAR RHYTHM, +S1, +S2 - GI/Abdominal Exam GI & Abdominal Exam: Soft, Normal Bowel Sounds. absent: Organomegaly - Extremities Exam Extremities Exam: Pedal Edema (BILATERAL PEDAL EDEMA CHRONIC CHANGES LOWER EXTREMITIES WITH SUPERFICIAL ULCERS.). absent: Calf Tenderness - Neurological Exam Neurological Exam: Awake, Oriented x3 - Psychiatric Exam Psychiatric exam: Normal Mood - Skin Skin Exam: Normal Color, Warm Assessment and Plan (1) Cerebral palsy Status: Acute (2) Chronic stasis dermatitis Status: Acute (3) Foot abrasion, infected Status: Acute (4) Cellulitis of left lower leg Status: Acute - Assessment and Plan (Free Text) Plan: continue cefepime 1 g every 8 hourly. 12/18/17. DISCONTINUE IV vancomycin BLOOD CULTURE CONTAMINANT ( STAPH COAGULASE- NEGATIVE 1:2 SETS ) f/u renal functions closely. Podiatry evaluation and wound care recommendations appreciated.
--- NOTE | 2017-12-22 01:33 | PN ---
DATE: SUBJECTIVE: Patient is a 32-year-old male. Patient was seen and examined at the bedside, looking comfortable. No nausea, vomiting or diarrhea. No hematuria, hematochezia. No headache. No dizziness. No fever, no chills. No chest pain, no palpitation. PHYSICAL EXAMINATION VITAL SIGNS: Temperature 98.3, pulse 94, blood pressure 108/74, respiratory rate 20. HEENT: Head: Normocephalic, atraumatic. Eyes: PERRLA. Extraocular muscles intact. Conjunctivae clear. Nose patent. Mucous membranes are moist. NECK: Supple. No carotid bruit, JVD, or thyromegaly. CHEST: Bilaterally symmetrical. HEART: S1 and S2 positive. LUNGS: Clear to auscultation. ABDOMEN: Soft. Bowel sounds positive. No organomegaly. EXTREMITIES: There is redness and warmth. No cyanosis. NEUROLOGIC: Patient is awake and alert. Follow simple commands. MEDICATIONS: Cefepime, Dilaudid, potassium, Lac-Hydrin, Lasix, Lovenox, Miralax, pantoprazole, Tylenol, vancomycin, and Zofran. LABORATORY DATA: White blood cells 9.8, hemoglobin 13.1, hematocrit 39.1, platelet 353. Sodium 135, potassium 3.5, BUN 10, creatinine 0.8, glucose 84. ASSESSMENT AND PLAN: Mr. Robin Kaufman is a 32-year-old male with history of leukocytosis; hypokalemia, replaced; hypochloremia; has history of gastroesophageal reflux disease, dyspepsia, hypertension, cerebral palsy; mentally challenged; has left foot cellulitis. Podiatry is on the case. Had 2 episodes of nausea and vomiting 2 days ago. GI consult was called. Patient has cerebral palsy. Patient getting antiemetic for nausea, pain control. GI converted patient's Pepcid to Protonix. Antibiotics vancomycin and cefepime as per ID. Follow up blood cultures and urine cultures. Patient is seen by Dr. Lew Mendoza, Dr Letty Gil also. We will follow. Lien Manriquez MD Psychiatric # [id number]
[2017-12-22] MEDS: POLYETHYLENE GLYCOL 3350 17 GM/Dose PACKET PO SCH (09:52)
[2017-12-22] MEDS: Ammonium Lactate 12% Lotion (225 g) EXT SCH (09:53)
[2017-12-22] MEDS: Pantoprazole 40 mg EC Tab PO SCH (09:53)
[2017-12-22] MEDS: Potassium Chloride 20 mEq ER Tab PO SCH (09:56)
[2017-12-22] MEDS: Enoxaparin 40 mg Syringe SC SCH (09:57)
--- NOTE | 2017-12-22 12:24 | CP.PCM.PN ---
Subjective - Date & Time of Evaluation Date of Evaluation: 12/22/17 Time of Evaluation: 12:00 - Subjective Subjective: Podiatry Consult Note- Dr. Corbin 32 yo male patient seen at bedside today concerning b/l venous stasis dermatitis. Pt seen wearing multipodus boots to both feel, dressings are clean dry and intact. Pt denies any pain or discomfort to the b/l LE, does still complain of slight itching but says cream is helping. Offers no other complaints , Objective - Vital Signs/Intake and Output Vital Signs (last 24 hours): Temp Pulse Resp BP Pulse Ox 97.4 F L 95 H 20 115/79 100 12/22/17 08:00 12/22/17 08:00 12/22/17 08:00 12/22/17 09:52 12/22/17 08:00 Intake and Output: 12/22/17 12/22/17 06:59 18:59 Intake Total 340 Balance 340 - Medications Medications: Current Medications Acetaminophen (Tylenol 325mg Tab) 650 mg PO Q4H PRN PRN Reason: pain fever Enoxaparin Sodium (Lovenox) 40 mg SC DAILY [facility] Last Admin: 12/22/17 09:57 Dose: 40 mg Furosemide (Lasix) 40 mg IVP Q12 [facility] Last Admin: 12/22/17 09:52 Dose: 40 mg Hydromorphone HCl (Dilaudid) 0.5 mg IVP Q4H PRN PRN Reason: Pain, Mild (1-3) Last Admin: 12/18/17 22:53 Dose: 0.5 mg Cefepime HCl 1 gm/ Dextrose 50 mls @ 100 mls/hr IVPB Q8H [facility] Last Admin: 12/22/17 05:33 Dose: 100 mls/hr Lactic Acid (Lac-Hydrin 12% Lotion (225 G)) 0 gm EXT DAILY [facility] Last Admin: 12/22/17 09:53 Dose: 1 applic Ondansetron HCl (Zofran Inj) 4 mg IVP Q6 PRN PRN Reason: Nausea/Vomiting Last Admin: 12/20/17 00:19 Dose: 4 mg Pantoprazole Sodium (Protonix Ec Tab) 40 mg PO DAILY [facility] Last Admin: 12/22/17 09:53 Dose: 40 mg Polyethylene Glycol (Miralax) 17 gm PO DAILY [facility] Last Admin: 12/22/17 09:52 Dose: 17 gm Potassium Chloride (K-Dur 20 Meq Er Tab) 20 meq PO DAILY [facility] Last Admin: 12/22/17 09:56 Dose: 20 meq - Labs Labs: 12/20/17 07:15 12/20/17 07:15 - Constitutional Appears: Well, Non-toxic, No Acute Distress - Extremities Exam Extremities Exam: absent: Calf Tenderness Additional comments: B/l LE focused exam: dressings appear c/d/o with multipodus boots in place Vasc: DP/PT pulses fully palpable 2/4 b/l. Skin temperature warm to warm from proximal to distal. CFT < 3 seconds to all digits. Minimal edema noted b/l Neuro: Epicritic and protective sensation grossly intact b/l Derm: Diffuse xerotic skin most likely secondary to venous stasis dermatitis noted to b/l feet and lower legs with lichenification of skin also present. Ulcerations of b/l feet have closed, neg drainage MSK: Rigid conrtractures of b/l LE noted. Severe hallux valgus deformity noted b/l, no pain to palp of b/l LE - Neurological Exam Neurological Exam: Alert, Awake Assessment and Plan - Assessment and Plan (Free Text) Assessment: 32 year old male with PMhx of cerebral palsy seen for b/l venous statis dermatitis with healed b/l foot ulcerations Plan: Pt S&E at bedside Plan discussed with Dr. Corbin Afebrile, no leukocytosis Dressings discontinued, Lac-hydrin applied to b/l LE, socks and multipodus boots applied c/w current regiment of Lac-hydrin bid stable per podiatry c/w IV abx as per ID will follow
[2017-12-22] MEDS: Meropenem 500 MG in Sodium Chloride 0.9% 100 ML IVPB SCH ×2 (13:32→21:20)
--- NOTE | 2017-12-22 22:39 | CP.PCM.PN ---
Subjective - Date & Time of Evaluation Date of Evaluation: 12/22/17 Time of Evaluation: 22:39 - Subjective Subjective: AFEBRILE DENIES ANY NAUSEA OR VOMITING. NO NEW COMPLAINTS lABS REVIEWED. BLOOD CULTURE 1:2 SETS +VE STAPH COAGULASE NEGATIVE ? CONTAMINANT. WOUND CULTURE LEFT FOOT-- ECOLI / SCN S- MEROPENEM /ERTAPENEM DC iv CEFEPIME . START ON MERREM 500MG IV Q 8HRLY. LWC PER PODIATRY Objective - Vital Signs/Intake and Output Vital Signs (last 24 hours): Temp Pulse Resp BP Pulse Ox 98 F 102 H 20 122/70 97 12/22/17 16:48 12/22/17 16:48 12/22/17 16:48 12/22/17 21:20 12/22/17 16:48 Intake and Output: 12/22/17 12/23/17 18:59 06:59 Intake Total 680 350 Balance 680 350 - Medications Medications: Current Medications Acetaminophen (Tylenol 325mg Tab) 650 mg PO Q4H PRN PRN Reason: pain fever Enoxaparin Sodium (Lovenox) 40 mg SC DAILY [facility] Last Admin: 12/22/17 09:57 Dose: 40 mg Furosemide (Lasix) 40 mg IVP Q12 [facility] Last Admin: 12/22/17 21:20 Dose: 40 mg Hydromorphone HCl (Dilaudid) 0.5 mg IVP Q4H PRN PRN Reason: Pain, Mild (1-3) Last Admin: 12/22/17 20:20 Dose: 0.5 mg Meropenem 500 mg/ Sodium (Chloride) 100 mls @ 100 mls/hr IVPB Q8 [facility] Last Admin: 12/22/17 21:20 Dose: 100 mls/hr Lactic Acid (Lac-Hydrin 12% Lotion (225 G)) 0 gm EXT DAILY [facility] Last Admin: 12/22/17 09:53 Dose: 1 applic Ondansetron HCl (Zofran Inj) 4 mg IVP Q6 PRN PRN Reason: Nausea/Vomiting Last Admin: 12/22/17 21:26 Dose: 4 mg Pantoprazole Sodium (Protonix Ec Tab) 40 mg PO DAILY [facility] Last Admin: 12/22/17 09:53 Dose: 40 mg Polyethylene Glycol (Miralax) 17 gm PO DAILY [facility] Last Admin: 12/22/17 09:52 Dose: 17 gm Potassium Chloride (K-Dur 20 Meq Er Tab) 20 meq PO DAILY [facility] Last Admin: 12/22/17 09:56 Dose: 20 meq - Labs Labs: 12/20/17 07:15 12/20/17 07:15 - Constitutional Appears: No Acute Distress - Head Exam Head Exam: NORMAL INSPECTION - Eye Exam Eye Exam: EOMI, PERRL - ENT Exam ENT Exam: Normal Oropharynx - Neck Exam Neck Exam: Normal Inspection - Respiratory Exam Respiratory Exam: Clear to Ausculation Bilateral - Cardiovascular Exam Cardiovascular Exam: REGULAR RHYTHM, +S1, +S2 - GI/Abdominal Exam GI & Abdominal Exam: Soft, Normal Bowel Sounds - Extremities Exam Extremities Exam: Pedal Edema (CH STASIS DERMATITIS CHANGES W HYPERKERATOTIC SKIN/SUPERFICIAL ULCERS L FOOT .). absent: Calf Tenderness - Neurological Exam Neurological Exam: Awake, CN II-XII Intact, Oriented x3 - Psychiatric Exam Psychiatric exam: Normal Mood - Skin Skin Exam: Normal Color, Warm Assessment and Plan (1) Cerebral palsy Status: Acute (2) Chronic stasis dermatitis Status: Acute (3) Foot abrasion, infected Status: Acute (4) Cellulitis of left lower leg Status: Acute - Assessment and Plan (Free Text) Plan: DISCONTINUE iv CEFEPIME START ON mERREM 500 MG EVERY 8 HOURLY 12/22/17. OFF IV vancomycin BLOOD CULTURE CONTAMINANT ( STAPH COAGULASE-NEGATIVE 1:2 SETS ) f/u renal functions closely. Podiatry wound care recommendations ORDERED.
--- NOTE | 2017-12-23 02:08 | PN ---
DATE: SUBJECTIVE: The patient is a 32-year-old male. The patient is seen and examined at the bedside, looking comfortable, not big change in the status. No hematuria or hematochezia. No headaches or dizziness. Wearing Multi Podus boots on both feet. Dressings are clean, dry and intact. PHYSICAL EXAMINATION: VITAL SIGNS: Temperature 97.4, pulse 95, respiratory rate 20, blood pressure 150/79, pulse 100. HEENT: Head: Normocephalic, atraumatic. Eyes: PERRLA. Extraocular muscles intact. Conjunctivae clear. Nose patent. Mucous membranes are moist. NECK: Supple. No carotid bruit, JVD, or thyromegaly. CHEST: Bilaterally symmetrical. HEART: S1 and S2 positive. LUNGS: Clear to auscultation. ABDOMEN: Soft. Bowel sounds positive. No organomegaly. EXTREMITIES: Positive edema and ulceration. NEUROLOGIC: Patient is awake and alert. MEDICATIONS: Tylenol, Lovenox, Lasix, Dilaudid, Lac-Hydrin, Zofran, Protonix, Miralax, K-Dur. LABORATORY DATA: White blood cells 9.8, hemoglobin 13.1, hematocrit 39.1, platelets 353. Sodium 135, potassium 3.5, BUN 10, creatinine 0.8, glucose 95. ASSESSMENT AND PLAN: Mr. Robin Kaufman is a 32-year-old male with history of cerebral palsy, bilateral venous stasis dermatitis with healed bilateral foot ulceration. Podiatry is on the case. Getting dressing, afebrile, no leukocytosis. Lac-Hydrin lotion applied bilaterally. Socks and Multi Podus boots applied. Stable as per Podiatry. Getting antibiotics as per Infectious Diseases. Seen by Dr. Gil of Infectious Diseases and Dr. Lew Mendoza for nausea and vomiting, but no more episodes of nausea and vomiting. Blood cultures; positive staph coagulase, maybe contamination. Wound cultures of left foot; GNR/SCN. Patient is on cefepime 1 g every 8 hour. Discontinue intravenous vancomycin. Follow up renal function closely. Foot abrasion is improving. GI and DVT prophylaxes. Repeat labs. Lien Manriquez MD [facility]
[2017-12-23] MEDS: Meropenem 500 MG in Sodium Chloride 0.9% 100 ML IVPB SCH ×3 (05:12→21:48)
[2017-12-23] MEDS: Enoxaparin 40 mg Syringe SC SCH (10:00)
[2017-12-23] MEDS: Pantoprazole 40 mg EC Tab PO SCH (10:08)
[2017-12-23] MEDS: POLYETHYLENE GLYCOL 3350 17 GM/Dose PACKET PO SCH (10:09)
[2017-12-23] MEDS: Potassium Chloride 20 mEq ER Tab PO SCH (10:10)
[2017-12-23] MEDS: Ammonium Lactate 12% Lotion (225 g) EXT SCH (10:15)
--- NOTE | 2017-12-23 23:12 | CP.PCM.PN ---
Subjective - Date & Time of Evaluation Date of Evaluation: 12/23/17 Time of Evaluation: 23:12 - Subjective Subjective: AFEBRILE DENIES ANY NAUSEA OR VOMITING. NO NEW COMPLAINTS. BILATERAL LEG ULCERS IMPROVING AND DRYING UP. CASE DISCUSSED WITH ATTENDING. cASE DISCUSSED WITH NURSE PRACTITIONER La. PATIENT WANTS TO GO HOME. REFUSES REHABILITATION WILL SWITCH TO BY MOUTH AUGMENTIN 875 TWICE A DAY FOR 7 DAYS ON DISCHARGE. Objective - Vital Signs/Intake and Output Vital Signs (last 24 hours): Temp Pulse Resp BP Pulse Ox 97.1 F L 91 H 20 126/74 93 L 12/23/17 16:00 12/23/17 16:00 12/23/17 16:00 12/23/17 21:49 12/23/17 16:00 Intake and Output: 12/23/17 12/24/17 18:59 06:59 Intake Total 280 300 Balance 280 300 - Medications Medications: Current Medications Acetaminophen (Tylenol 325mg Tab) 650 mg PO Q4H PRN PRN Reason: pain fever Enoxaparin Sodium (Lovenox) 40 mg SC DAILY [facility] Last Admin: 12/23/17 10:00 Dose: 40 mg Furosemide (Lasix) 40 mg IVP Q12 [facility] Last Admin: 12/23/17 21:49 Dose: 40 mg Meropenem 500 mg/ Sodium (Chloride) 100 mls @ 100 mls/hr IVPB Q8 [facility] Last Admin: 12/23/17 21:48 Dose: 100 mls/hr Lactic Acid (Lac-Hydrin 12% Lotion (225 G)) 0 gm EXT DAILY [facility] Last Admin: 12/23/17 10:15 Dose: 1 applic Ondansetron HCl (Zofran Inj) 4 mg IVP Q6 PRN PRN Reason: Nausea/Vomiting Last Admin: 12/23/17 21:47 Dose: 4 mg Pantoprazole Sodium (Protonix Ec Tab) 40 mg PO DAILY [facility] Last Admin: 12/23/17 10:08 Dose: 40 mg Polyethylene Glycol (Miralax) 17 gm PO DAILY [facility] Last Admin: 12/23/17 10:09 Dose: 17 gm Potassium Chloride (K-Dur 20 Meq Er Tab) 20 meq PO DAILY [facility] Last Admin: 12/23/17 10:10 Dose: 20 meq - Labs Labs: 12/20/17 07:15 12/20/17 07:15 - Constitutional Appears: No Acute Distress - Head Exam Head Exam: NORMAL INSPECTION - Eye Exam Eye Exam: EOMI, PERRL - ENT Exam ENT Exam: Normal Oropharynx - Neck Exam Neck Exam: Normal Inspection - Respiratory Exam Respiratory Exam: Clear to Ausculation Bilateral - Cardiovascular Exam Cardiovascular Exam: REGULAR RHYTHM, +S1, +S2 - Extremities Exam Extremities Exam: Pedal Edema (BILATERAL LOWER EXTREMITY EDEMA AND SEVERE DEFORMITIES/AND CONTRACTURES.), Tenderness ( SUPERFICIAL ULCERS GRANULATING.). absent: Calf Tenderness - Neurological Exam Neurological Exam: Awake, Oriented x3 - Psychiatric Exam Psychiatric exam: Normal Mood - Skin Skin Exam: Normal Color, Warm Assessment and Plan (1) Cerebral palsy Status: Acute (2) Chronic stasis dermatitis Status: Acute (3) Foot abrasion, infected Status: Acute (4) Cellulitis of left lower leg Status: Acute - Assessment and Plan (Free Text) Plan: PATIENT WANTS TO GO HOME. REFUSES REHABILITATION WILL SWITCH TO BY MOUTH AUGMENTIN 875 TWICE A DAY FOR 7 DAYS ON DISCHARGE. LWC 4 HYPERKERATOTIC DRY SKIN BILATERAL LOWER EXTREMITIES PER PODIATRY.
--- NOTE | 2017-12-24 03:09 | PN ---
DATE: SUBJECTIVE: The patient is a 32-year-old male. The patient is seen and examined at the bedside, looking comfortable. Pain on the extremity is better. No nausea, vomiting or diarrhea. No hematuria, no hematochezia. No headache. No dizziness. No fever. No chills. PHYSICAL EXAMINATION: VITAL SIGNS: Temperature 98.0, pulse 102, respiratory rate 20, blood pressure 120/70, pulse oximetry is 97. HEENT: Head: Normocephalic, atraumatic. Eyes: PERRLA. Extraocular muscles intact. Conjunctivae clear. Nose patent. Mucous membranes are moist. NECK: Supple. No carotid bruit, JVD, or thyromegaly. CHEST: Bilaterally symmetrical. HEART: S1 and S2 positive. LUNGS: Clear to auscultation. ABDOMEN: Soft. Bowel sounds present. No organomegaly. EXTREMITIES: Trace edema, has contractures. NEUROLOGIC: Patient is awake and alert. MEDICATIONS: Tylenol, Lovenox, Lasix, Dilaudid, meropenem, Zofran, Protonix, MiraLax, K-Dur. LABORATORY DATA: White blood cells 9.8, hemoglobin 13.1, hematocrit 39.0, platelets 353. Sodium 135, potassium 3.5, BUN 12, creatinine 0.3, glucose 95. ASSESSMENT AND PLAN: Mr. Robin Kaufman is a 32-year-old male with hypokalemia, hyperchloremia, has cerebral palsy, chronic stasis dermatitis, foot abrasion, infection, cellulitis of the left lower leg. As per Dr. Letty Gil, discontinue cefepime, off IV vancomycin, has blood cultures contamination. Staph coagulase is negative 1/2 sets. Wound care recommended as per Dr. Letty Gil. I had a length of time discussion with her. Patient can go home with the p.o. antibiotics. Follow up with her own primary care physician. Rehab offered, the patient refused. The patient lives alone with some funeral home makeup artist. I explained to the patient very well that he is not able to take care himself and we prefer to go to rehab, but he is refusing to go to rehab. Lien Declan, MD [facility] # [id number] [email or web address]
[2017-12-24] MEDS: Meropenem 500 MG in Sodium Chloride 0.9% 100 ML IVPB SCH ×3 (06:01→21:34)
[2017-12-24] MEDS: Ammonium Lactate 12% Lotion (225 g) EXT SCH (09:56)
[2017-12-24] MEDS: Enoxaparin 40 mg Syringe SC SCH (09:57)
[2017-12-24] MEDS: POLYETHYLENE GLYCOL 3350 17 GM/Dose PACKET PO SCH (09:57)
[2017-12-24] MEDS: Potassium Chloride 20 mEq ER Tab PO SCH (09:57)
[2017-12-24] MEDS: Pantoprazole 40 mg EC Tab PO SCH (09:57)
[2017-12-24] MEDS ORDERED: Aluminum Hydroxide/Magnesium Hydroxide Susp (30 mL) PO ONE (14:12)
--- NOTE | 2017-12-24 17:47 | CP.PCM.PN ---
Subjective - Date & Time of Evaluation Date of Evaluation: 12/24/17 Time of Evaluation: 10:00 - Subjective Subjective: Awake, alert, able to make needs known, needs tital help with ADL. Objective - Vital Signs/Intake and Output Vital Signs (last 24 hours): Temp Pulse Resp BP Pulse Ox 98.4 F 85 20 117/73 95 12/24/17 16:00 12/24/17 16:00 12/24/17 16:00 12/24/17 16:00 12/24/17 16:00 Intake and Output: 12/24/17 12/24/17 06:59 18:59 Intake Total 550 600 Output Total 800 Balance 550 -200 - Medications Medications: Current Medications Acetaminophen (Tylenol 325mg Tab) 650 mg PO Q4H PRN PRN Reason: pain fever Enoxaparin Sodium (Lovenox) 40 mg SC DAILY [facility] Last Admin: 12/24/17 09:57 Dose: 40 mg Furosemide (Lasix) 40 mg IVP Q12 [facility] Last Admin: 12/24/17 09:57 Dose: 40 mg Meropenem 500 mg/ Sodium (Chloride) 100 mls @ 100 mls/hr IVPB Q8 [facility] Last Admin: 12/24/17 13:43 Dose: 100 mls/hr Lactic Acid (Lac-Hydrin 12% Lotion (225 G)) 0 gm EXT DAILY [facility] Last Admin: 12/24/17 09:56 Dose: 1 applic Ondansetron HCl (Zofran Inj) 4 mg IVP Q6 PRN PRN Reason: Nausea/Vomiting Last Admin: 12/24/17 11:18 Dose: 4 mg Pantoprazole Sodium (Protonix Ec Tab) 40 mg PO DAILY [facility] Last Admin: 12/24/17 09:57 Dose: 40 mg Polyethylene Glycol (Miralax) 17 gm PO DAILY [facility] Last Admin: 12/24/17 09:57 Dose: Not Given Potassium Chloride (K-Dur 20 Meq Er Tab) 20 meq PO DAILY [facility] Last Admin: 12/24/17 09:57 Dose: 20 meq - Labs Labs: 12/20/17 07:15 12/20/17 07:15 Assessment and Plan - Assessment and Plan (Free Text) Assessment: Patient is seen and examined. Alert, awake, no sob or distress. Discharge done for home as advised by DR Gil on augmentin x7 days. Patient awaiting for his supervisor home energy consultant to bring his motorized wheelchair. manager landscape working on tranportation. Advised to follow up with PMD in 1 week
--- NOTE | 2017-12-25 02:54 | PN ---
DATE: SUBJECTIVE: The patient is seen and examined at the bedside, awake, alert, not confused, able to make decision. Needs total help for ADL at home. Actually, the patient was going to be discharged home yesterday, but problem was that he does not have his motorized chair with him. His homemaker was to bring a motorized wheelchair then he will go. I spoke to social services specialist and nurse practitioner. He will go today. No nausea, vomiting, or diarrhea. No headaches or dizziness. Looks awake and alert. No fever. No chills. Cleared by ID. PHYSICAL EXAMINATION: VITAL SIGNS: Temperature 98.4, pulse 85, respiratory rate 20, blood pressure 117/76, pulse oximetry 95. HEENT: Head: Normocephalic, atraumatic. Eyes: PERRLA. Extraocular muscles intact. Conjunctivae clear. Nose patent. NECK: Supple. No carotid bruit, JVD, or thyromegaly. CHEST: Bilaterally symmetrical. HEART: S1 and S2 positive. LUNGS: Clear to auscultation. ABDOMEN: Soft. Bowel sounds positive. No organomegaly. EXTREMITIES: Lower extremities has contracture and is very dry and has history of stasis dermatitis. NEUROLOGIC: The patient is awake and alert, understanding all situations, as well as follow the simple commands. MEDICATIONS: Lovenox, Lasix, meropenem, Lac-Hydrin, Zofran, Protonix, MiraLax, and potassium. LABORATORY DATA: We do not have any recent labs today, but I reviewed old labs. ASSESSMENT AND PLAN: Ms. Mandeep Kelly is a 32-year-old male with history of cerebral palsy, came with cellulitis of the leg, seen by Infectious Disease, intravenous antibiotics given. Now Infectious Disease discharged the patient with p.o. Augmentin for 7 days. The patient is waiting for his homemaker to bring his motorized wheelchair. route delivery manager and social services specialist are working hard. Do not need transportation. The patient is told to follow up with his own primary care physician, seen by the Podiatry in the hospital. History of foot abrasions, infection, cellulitis of the left lower leg, chronic stasis dermatitis, cerebral palsy. Actually plan was, the patient wants to go home, refuses rehab. Plan was to send the patient to rehab. Dr. Gil switched antibiotics to p.o. 875 mg b.i.d. for 7 days. Gastrointestinal deep vein thrombosis prophylaxis with labs, we will follow up. Lien Manriquez MD
[2017-12-25] MEDS: Meropenem 500 MG in Sodium Chloride 0.9% 100 ML IVPB SCH ×3 (05:13→21:53)
[2017-12-25 07:58] LABS: BLOOD UREA NITROGEN 19 mg/dL (9-20); CALCIUM 9.5 mg/dl (8.6-10.4); GFR AFRICAN-AMERICAN > 60; GFR NON-AFRICAN AMERICAN > 60
[2017-12-25] MEDS: Potassium Chloride 20 mEq ER Tab PO SCH (09:44)
[2017-12-25] MEDS: Ammonium Lactate 12% Lotion (225 g) EXT SCH (09:44)
[2017-12-25] MEDS: Pantoprazole 40 mg EC Tab PO SCH (09:44)
[2017-12-25] MEDS: POLYETHYLENE GLYCOL 3350 17 GM/Dose PACKET PO SCH (09:44)
[2017-12-25] MEDS: Enoxaparin 40 mg Syringe SC SCH (09:45)
--- NOTE | 2017-12-25 23:39 | CP.PCM.PN ---
Subjective - Date & Time of Evaluation Date of Evaluation: 12/25/17 Time of Evaluation: 23:39 - Subjective Subjective: afebrile Awake, alert, able to make needs known, needs tital help with ADL. bilateral lower extremities improving slowly. Still edematous Patient on IV meropenem. Awaiting disposition Objective - Vital Signs/Intake and Output Vital Signs (last 24 hours): Temp Pulse Resp BP Pulse Ox 98.8 F 93 H 20 126/80 93 L 12/25/17 18:03 12/25/17 18:03 12/25/17 18:03 12/25/17 21:52 12/25/17 18:03 Intake and Output: 12/25/17 12/26/17 18:59 06:59 Intake Total 920 Balance 920 - Medications Medications: Current Medications Acetaminophen (Tylenol 325mg Tab) 650 mg PO Q4H PRN PRN Reason: pain fever Enoxaparin Sodium (Lovenox) 40 mg SC DAILY [facility] Last Admin: 12/25/17 09:45 Dose: 40 mg Furosemide (Lasix) 40 mg IVP Q12 [facility] Last Admin: 12/25/17 21:52 Dose: 40 mg Meropenem 500 mg/ Sodium (Chloride) 100 mls @ 100 mls/hr IVPB Q8 [facility] Last Admin: 12/25/17 21:53 Dose: 100 mls/hr Lactic Acid (Lac-Hydrin 12% Lotion (225 G)) 0 gm EXT DAILY [facility] Last Admin: 12/25/17 09:44 Dose: 1 applic Ondansetron HCl (Zofran Inj) 4 mg IVP Q6 PRN PRN Reason: Nausea/Vomiting Last Admin: 12/24/17 11:18 Dose: 4 mg Pantoprazole Sodium (Protonix Ec Tab) 40 mg PO DAILY [facility] Last Admin: 12/25/17 09:44 Dose: 40 mg Polyethylene Glycol (Miralax) 17 gm PO DAILY [facility] Last Admin: 12/25/17 09:44 Dose: 17 gm Potassium Chloride (K-Dur 20 Meq Er Tab) 20 meq PO DAILY [facility] Last Admin: 12/25/17 09:44 Dose: 20 meq - Labs Labs: 12/20/17 07:15 12/25/17 07:03 - Constitutional Appears: No Acute Distress, Chronically Ill - Head Exam Head Exam: NORMAL INSPECTION - Eye Exam Eye Exam: EOMI, PERRL - ENT Exam ENT Exam: Normal Oropharynx - Respiratory Exam Respiratory Exam: Clear to Ausculation Bilateral - Cardiovascular Exam Cardiovascular Exam: REGULAR RHYTHM, +S1, +S2 - GI/Abdominal Exam GI & Abdominal Exam: Soft, Normal Bowel Sounds - Extremities Exam Extremities Exam: Pedal Edema. absent: Calf Tenderness, Tenderness (bilateral lower extremity edema and chronic keratotic skin changes. Superficial ulcers healing slowly.) Assessment and Plan (1) Cerebral palsy Status: Acute (2) Chronic stasis dermatitis Status: Acute (3) Foot abrasion, infected Status: Acute (4) Cellulitis of left lower leg Status: Acute - Assessment and Plan (Free Text) Plan: CONTINUE iv MEROPENEM FOR NOW ORDERED cASE DISCUSSED WITH rn BODY JOINER. WILL SWITCH TO BY MOUTH AUGMENTIN 875 TWICE A DAY FOR 7 DAYS ON DISCHARGE. LWC 4 HYPERKERATOTIC DRY SKIN BILATERAL LOWER EXTREMITIES PER PODIATRY.
--- NOTE | 2017-12-26 01:23 | PN ---
DATE: SUBJECTIVE: The patient is seen and examined at the bedside, looking comfortable. No nausea, vomiting, or diarrhea. No hematuria. No hematochezia. No swelling of the leg. No chest pain. No palpitation. No headache. No dizziness. No fever. No chills. PHYSICAL EXAMINATION: VITAL SIGNS: Temperature 98.8, pulse 93, blood pressure 123/80, and respiratory rate 20. HEENT: Head: Normocephalic, atraumatic. Eyes: PERRLA, extraocular muscles intact, conjunctivae clear. Nose patent. Mucous membranes moist. NECK: Supple. No carotid bruits. No JVD or thyromegaly. CHEST: Bilaterally symmetrical. HEART: S1 and S2 positive. LUNGS: Clear to auscultation. ABDOMEN: Soft. Bowel sounds positive. No organomegaly. EXTREMITIES: The patient has massive stasis dermatitis. No cyanosis. NEUROLOGIC: The patient is awake and alert, follows simple commands. MEDICATIONS: Potassium, Lac-Hydrin, Lasix, Lovenox, meropenem, MiraLax, Protonix, Tylenol, Zofran. LABORATORY DATA: We do not have recent labs today, but reviewed old labs. We have sodium 136, potassium 3.9, BUN 19, creatinine 0.9. ASSESSMENT AND PLAN: Mr. Robin Kaufman is a 32-year-old male with history of leukopenia; leukocytosis, improved; history of hypokalemia, improved; hypochloremia; history of cerebral palsy; has cellulitis of the leg. Infectious Disease is on the case, was getting IV antibiotics, now p.o. Getting Augmentin. We are having problems with discharge planning. Rehab offered, the patient refused, having some transportation problem, waiting for wheelchair and homemaker or visiting nurse. Discussion done with the social media director, nurse practitioner, and staff. The patient should be discharged. We will follow up. Lien Manriquez MD MTDD
[2017-12-26] MEDS: Meropenem 500 MG in Sodium Chloride 0.9% 100 ML IVPB SCH ×2 (06:04→13:56)
[2017-12-26 09:33] VITALS: BP 118/76; PULSE 87; RESP 20; TEMP 98.4; O2SAT 98
[2017-12-26] MEDS: Enoxaparin 40 mg Syringe SC SCH (10:09)
[2017-12-26] MEDS: Pantoprazole 40 mg EC Tab PO SCH (10:09)
[2017-12-26] MEDS: Potassium Chloride 20 mEq ER Tab PO SCH (10:09)
[2017-12-26] MEDS: POLYETHYLENE GLYCOL 3350 17 GM/Dose PACKET PO SCH ×2 (10:10→10:20)
[2017-12-26] MEDS: Ammonium Lactate 12% Lotion (225 g) EXT SCH (10:19)
--- NOTE | 2017-12-26 12:24 | CP.PCM.PN ---
Subjective - Date & Time of Evaluation Date of Evaluation: 12/26/17 Time of Evaluation: 10:05 - Subjective Subjective: PT SEE THIS MORNING BY DR. REGAN. PT IS STILL FOR D/C; NEW ORDER ENTERED FOR Orin REGAN. DISCUSSED WITH AGATA HOOD REGARDING PT BEING D/C. PT IS STILL WAITING FOR HIS PERSONAL MOTORIZED WHEELCHAIR TO BE BROUGHT IN FROM WHERE HE NORMALLY LIVES; UNFORTUNATELY THERE IS NO ELECTRICITY IN THE BUILDING AND THE WC IS . FIRE DEPT SENT TO BUDGET DIRECTOR WHEELCHAIR WITH [employer] YESTERDAY AND WC COULD NOT BE MOVED OUT OF THE DOOR BECAUSE IT HAS NO BATTERY LIFE. PT IS FOR D/C SOON HIS WC IS DELIVERED. NO FURTHER ORDERS. Objective - Vital Signs/Intake and Output Vital Signs (last 24 hours): Temp Pulse Resp BP Pulse Ox 98.4 F 87 20 118/76 98 12/26/17 09:00 12/26/17 09:00 12/26/17 09:00 12/26/17 10:09 12/26/17 09:00 Intake and Output: 12/26/17 12/26/17 06:59 18:59 Intake Total 300 Output Total 550 Balance -250 - Medications Medications: Current Medications Acetaminophen (Tylenol 325mg Tab) 650 mg PO Q4H PRN PRN Reason: pain fever Last Admin: 12/26/17 10:10 Dose: 650 mg Enoxaparin Sodium (Lovenox) 40 mg SC DAILY [facility] Last Admin: 12/26/17 10:09 Dose: 40 mg Furosemide (Lasix) 40 mg IVP Q12 [facility] Last Admin: 12/26/17 10:09 Dose: 40 mg Meropenem 500 mg/ Sodium (Chloride) 100 mls @ 100 mls/hr IVPB Q8 [facility] Last Admin: 12/26/17 06:04 Dose: 100 mls/hr Lactic Acid (Lac-Hydrin 12% Lotion (225 G)) 0 gm EXT DAILY [facility] Last Admin: 12/26/17 10:19 Dose: 1 applic Ondansetron HCl (Zofran Inj) 4 mg IVP Q6 PRN PRN Reason: Nausea/Vomiting Last Admin: 12/24/17 11:18 Dose: 4 mg Pantoprazole Sodium (Protonix Ec Tab) 40 mg PO DAILY [facility] Last Admin: 02/03/18 10:09 Dose: 40 mg Polyethylene Glycol (Miralax) 17 gm PO DAILY [facility] Last Admin: 12/26/17 10:20 Dose: Not Given Potassium Chloride (K-Dur 20 Meq Er Tab) 20 meq PO DAILY [facility] Last Admin: 12/26/17 10:09 Dose: 20 meq - Labs Labs: 12/20/17 07:15 12/25/17 07:03
== END 2017-12-26 16:00 | disposition home or self-care (01) | DRG 277 ==
LOC: C.ER 11:50 → C.9E 14:42 → C.3T 19:13
PROVIDERS: ADMIT Internal Medicine; ATTEND Internal Medicine
DX: L03.116 Cellulitis of left lower limb (principal); E87.6 Hypokalemia; L97.529 Non-pressure chronic ulcer of other part of left foot with unspecified severity; L97.919 Non-pressure chronic ulcer of unspecified part of right lower leg with unspecified severity; G80.9 Cerebral palsy, unspecified

== ENCOUNTER 2018-01-01 16:35 | Emergency (ER) | payer MEDICAID ==
[2018-01-01 17:08] VITALS: BMI 20.7
[2018-01-01 17:10] VITALS: BP 167/96; RESP 20
--- NOTE | 2018-01-01 19:27 | C.PDOC ---
History Of Present Illness Patient is a 32 y/o male, with a Hx of cerebral palsy, who presents to the ED with a complaint of chronic leg wounds. Patient was in-patient from 12/18 - 12/[address] Manriquez; patient was on multiple antibiotics and followed up with Dr. Martín Corbin. Patient receives chronic care at home with health aid. Reports he wants to follow up with PMD, but cannot get a follow up visit until January; requests increase in Lasix dosage/ Patient admits to over-drinking diuretics, drinking water liberally. Denies fever or chills at this time. Patient has no other physical complaints. Time Seen by Provider: 01/01/18 17:38 Chief Complaint (Nursing): Abnormal Skin Integrity History Per: Patient History/Exam Limitations: no limitations Onset/Duration Of Symptoms: Days Current Symptoms Are (Timing): Still Present Recent travel outside of the [place]: No Additional History Per: Patient Past Medical History Reviewed: Historical Data, Nursing Documentation, Vital Signs Vital Signs: Last Vital Signs Temp 98.2 F 01/01/18 17:08 Pulse 107 H 01/01/18 17:08 Resp 20 01/01/18 17:08 BP 167/96 H 01/01/18 17:08 Pulse Ox 94 L 01/01/18 19:48 - Medical History PMH: Arthritis (B/L HIP AND KNEE CONTRCTURES), HTN Other PMH: cerebral palsy Surgical History: No Surg Hx Family History: States: No Known Family Hx - Social History Hx Tobacco Use: No Hx Alcohol Use: No Hx Substance Use: No - Immunization History Hx Tetanus Toxoid Vaccination: No Hx Influenza Vaccination: No Hx Pneumococcal Vaccination: No Review Of Systems Constitutional: Negative for: Fever, Chills Skin: Positive for: Other (chronic lower extremity wounds to bilateral lower extremities) Physical Exam - Physical Exam Appears: Well, Non-toxic, No Acute Distress Skin: No Normal Color (greenish discoloration to left lower extemity with dry crust), Warm, Dry, Other (chronic superficial ulceration, lichenification, stasis dermatitis and edema to bilateral lower extremities; ) Head: Atraumatic, Normacephalic Oral Mucosa: Moist Chest: Symmetrical Cardiovascular: Rhythm Regular, No Murmur Respiratory: Normal Breath Sounds, No Rales, No Rhonchi, No Wheezing Gastrointestinal/Abdominal: Soft, No Tenderness Extremity: No Tenderness (to left lower extremity) Neurological/Psych: Oriented x3, Normal Speech, Normal Cognition ED Course And Treatment O2 Sat by Pulse Oximetry: 94 Progress Note: seen and evaluated by Podiatry Ken Scherer, wounds cleaned and dressed. pt ok of d/c home w his motorized wheelchair. Educated on fluid restrictions while on lasix. Medical Decision Making Medical Decision Making: Podiatry resident paged at 7:15 pm. chronic lower extremity superficial wounds, no acute wounds nor indication for infections at this time. Supplmenetal Eval per Pod, much appreciated. Disposition Doctor Will See Patient In The: Office Counseled Patient/Family Regarding: Studies Performed, Diagnosis - Disposition Disposition: HOME/ ROUTINE Disposition Time: 21:19 Condition: GOOD Forms: [facility] (Chinese) - Clinical Impression Clinical Impression: Stasis dermatitis of left lower extremity with venous ulcer due to chronic peripheral venous hypertension - Scribe Statement The provider has reviewed the documentation as recorded by the Scribe Argentina Bryant All medical record entries made by the Scribe were at my direction and personally dictated by me. I have reviewed the chart and agree that the record accurately reflects my personal performance of the history, physical exam, medical decision making, and the department course for this patient. I have also personally directed, reviewed, and agree with the discharge instructions and disposition.
--- NOTE | 2018-01-01 21:36 | CP.PCM.CON ---
History of Present Illness - History of Present Illness History of Present Illness: Consult Note Podiatry- Dr. Corbin 32 y.o male with PMHx of cerebral palsy and HTN seen in the ED for b/l venous stasis dermatits with lichenification and superficial ulcerations. Patient is known to Dr. Corbin and podiatry service. Pt on 12/18 admitted for venous stasis dermatitis in which patient was treated and d/c to follow up with Dr. Corbin and PMD. He reports nursing aid comes to his home to change his dressings. Patient reports that he is unable to see his PMD until January so he came to the ED to get examined. Patient reports that there are no changes to his lower extremity since discharged. He denies any N/V/F/C/CP/SOB/D/posterior calf pain when squeezed. PMH: cerebral palsy and HTN PSH: denies SH: denies smoking, drinking or illicit drug use MEDS: see MAR ALL: percocet- nausea and vomitting FH: mom and dad with HTN Past Patient History - Past Medical History & Family History Past Medical History?: Yes - Past Social History Smoking Status: Never Smoked - CARDIAC Hx Hypertension: Yes - NEUROLOGICAL Other/Comment: CEREBRAL PALSY PER PATIENT - MUSCULOSKELETAL/RHEUMATOLOGICAL Hx Arthritis: Yes (B/L HIP AND KNEE CONTRCTURES) - PSYCHIATRIC Hx Substance Use: No - SURGICAL HISTORY Hx Surgeries: No - ANESTHESIA Hx Anesthesia: No Meds Allergies/Adverse Reactions: Allergies Allergy/AdvReac Type Severity Reaction Status Date / Time acetaminophen [From Percocet] Allergy Verified 01/01/18 17:07 oxycodone [From Percocet] Allergy Verified 01/01/18 17:07 Physical Exam - Constitutional Appears: Well, Non-toxic, No Acute Distress - Extremities Exam Extremities exam: Negative for: calf tenderness Additional comments: B/l LE focused exam Vasc: DP/PT pulses palpable. Skin temperature cool to cool from proximal to distal. CFT < 3 seconds to all digits. Minimal edema noted b/l Neuro: Epicritic and protective sensation grossly intact b/l Derm: Diffuse xerotic skin most likely secondary to venous stasis dermatitis noted to b/l feet and lower legs with lichenification of skin also present. Multiple, small, superficial ulcerations noted diffusely on b/l feet. No clinical signs of infection noted at this time. No erythema, no purulence, no odor, no probe to bone. MSK: No POP to b/l LE. Rigid conrtractures of b/l LE noted. Severe hallux valgus deformity noted b/l - Neurological Exam Neurological exam: Alert, Oriented x3 - Psychiatric Exam Psychiatric exam: Normal Affect, Normal Mood Results - Vital Signs Recent Vital Signs: Last Vital Signs Temp 98.2 F 01/01/18 17:08 Pulse 107 H 01/01/18 17:08 Resp 20 01/01/18 17:08 BP 167/96 H 01/01/18 17:08 Pulse Ox 94 L 01/01/18 21:19 Assessment & Plan - Assessment and Plan (Free Text) Assessment: 32 year old male with PMHx of cerebral palsy and HTN with b/l venous stasis dermatits with lichenification of the skin and superficial ulcerations- stable with no clinical signs of infection Plan: Patient examined and evaluated Charts and vitals reviewed (afebrile) Discussed plan in detail with attending Dr. Corbin No clinical signs or symptoms of infection. LE is stable. b/l LE is cleansed with copious amounts of saline and dressed with xeroform, dsd, and cling Patient instructed to finish abx until completion Continue to get local wound care by nursing aid Patient to f/u with Dr. Corbin in wound care within 1 week. Pt will call for an appointment Thank you for the consult
[2018-01-01 22:49] VITALS: PULSE 80; TEMP 98; O2SAT 97
== END 2018-01-01 22:48 | disposition home or self-care (01) ==
LOC: C.ER 16:35
DX: I87.2 Venous insufficiency (chronic) (peripheral) (principal); I87.312 Chronic venous hypertension (idiopathic) with ulcer of left lower extremity; L97.929 Non-pressure chronic ulcer of unspecified part of left lower leg with unspecified severity; G80.9 Cerebral palsy, unspecified; I10 Essential (primary) hypertension

== ENCOUNTER 2018-01-05 19:12 | Emergency (ER) | payer MEDICAID ==
[2018-01-05 19:12] VITALS: BMI 20.7
[2018-01-05] MEDS ORDERED: Aluminum Hydroxide/Magnesium Hydroxide Susp (30 mL) PO STA (19:44)
--- NOTE | 2018-01-05 19:45 | C.PDOC ---
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 Patient also reports constipation, stating his last bowel movement was around 2-3 days ago. Patient also requests evaluations of his chronic leg wounds. Patient receives chronic care at home with health aid. Patient was evaluated for chronic venous stasis dermatitis and admitted on 12/18 for the same. He states he has not followed up with wound care clinic because he mas misplaced discharge papers from his last visit. He denies fever, chills, nausea, vomiting, and changes in appetite. Chief Complaint (Nursing): Abdominal Pain History Per: Patient History/Exam Limitations: no limitations Onset/Duration Of Symptoms: Hrs Current Symptoms Are (Timing): Still Present Location Of Pain/Discomfort: Diffuse Radiation Of Pain To:: None Quality Of Discomfort: "Pain" Associated Symptoms: Constipation. denies: Fever, Chills, Nausea, Vomiting, Loss Of Appetite Last Bowel Movement: Days Ago (2-3) Additional History Per: Patient Past Medical History Reviewed: Historical Data, Nursing Documentation, Vital Signs Vital Signs: Last Vital Signs Temp 98.2 F 01/06/18 05:04 Pulse 88 01/06/18 05:04 Resp 18 01/06/18 05:04 BP 129/77 01/06/18 05:04 Pulse Ox 100 01/06/18 05:04 - Medical History PMH: Arthritis (B/L HIP AND KNEE CONTRCTURES), HTN Surgical History: No Surg Hx Family History: States: Unknown Family Hx - Social History Hx Tobacco Use: No Hx Alcohol Use: No Hx Substance Use: No - Immunization History Hx Tetanus Toxoid Vaccination: No Hx Influenza Vaccination: No Hx Pneumococcal Vaccination: No Review Of Systems Constitutional: Negative for: Fever, Chills Gastrointestinal: Positive for: Abdominal Pain, Constipation. Negative for: Nausea, Vomiting Skin: Positive for: Other (swelling and infections to b/l feet ) Physical Exam - Physical Exam Appears: Non-toxic, No Acute Distress Skin: Warm, Dry, Other (chronic superficial ulcerations, lichenification and statis dermatitis to b/l lower extremities) Head: Atraumatic, Normacephalic Eye(s): bilateral: Normal Inspection Oral Mucosa: Moist Neck: Supple Chest: Symmetrical, No Deformity, No Tenderness Cardiovascular: Rhythm Regular, No Murmur Respiratory: Normal Breath Sounds, No Rales, No Rhonchi, No Wheezing Gastrointestinal/Abdominal: Bowel Sounds (active), Soft, No Tenderness, No Guarding, No Rebound Extremity: Normal ROM, Capillary Refill (less than 2 seconds ) Neurological/Psych: Oriented x3, Normal Speech, Normal Cognition ED Course And Treatment O2 Sat by Pulse Oximetry: 99 (on RA) Pulse Ox Interpretation: Normal Medical Decision Making Medical Decision Making: Impression: indigestion and chronic leg ulcers Plan: * GI Cocktail * dressing change * reassess and disposition Progress: Maalox PO and Lidocaine 2% Viscous PO administered. Disposition - Disposition Disposition: HOME/ ROUTINE Disposition Time: 06:17 Condition: GOOD Prescriptions: Polyethylene Glycol 3350 [Miralax] 1 bottle PO DAILY #240 ml Instructions: Constipation (ED), Chronic Wound Care (ED) Forms: Dimmi (Czech) Print Language: UZBEK - Clinical Impression Clinical Impression: Constipation - Scribe Statement The provider has reviewed the documentation as recorded by the Scribe (Janice Booth) Provider Attestation: All medical record entries made by the Scribe were at my direction and personally dictated by me. I have reviewed the chart and agree that the record accurately reflects my personal performance of the history, physical exam, medical decision making, and the department course for this patient. I have also personally directed, reviewed, and agree with the discharge instructions and disposition.
[2018-01-05] MEDS ORDERED: Aluminum Hydroxide/Magnesium Hydroxide Susp (30 mL) ONE (19:58)
[2018-01-05] MEDS ORDERED: POLYETHYLENE GLYCOL 3350 17 GM/Dose PACKET PO STA (21:31)
[2018-01-06 04:02] VITALS: RESP 18
[2018-01-06 05:16] VITALS: BP 129/77; PULSE 88; TEMP 98.2
[2018-01-06 06:18] VITALS: O2SAT 99
== END 2018-01-06 05:13 | disposition home or self-care (01) ==
LOC: C.ER 19:12
DX: K59.00 Constipation, unspecified (principal); I10 Essential (primary) hypertension; G80.0 Spastic quadriplegic cerebral palsy